=== PATIENT | female | born 1975 | race Caucasian/White ===

== ENCOUNTER 2023-01-31 13:17 | Outpatient (CLI) | payer OTHER, SELFPAY | END 2023-01-31 13:18 | disposition home or self-care (01) | PROVIDERS: PCP Family Medicine; Visit Provider Family Medicine | DX: I10 Essential (primary) hypertension (principal); E04.1 Nontoxic single thyroid nodule; K76.0 Fatty (change of) liver, not elsewhere classified; E66.9 Obesity, unspecified | CPT/HCPCS: 80053; 80061; 84443; 87086; 87186 ==

== ENCOUNTER 2024-01-10 10:58 | Outpatient (CLI) | payer OTHER, SELFPAY ==
--- NOTE | 2024-01-10 11:00 | US_ITS ---
Patient: PASCUAL PEREZ Facility:?[facility] Patient ID:?[id number] Site Patient ID:?[id number]. Site :?[id number] Study:?US-Thyroid -01/10/2024 12:16:38 PM Ordering Physician:hilda lucas Final Report: INDICATION: Follow-up thyroid nodules. COMPARISON: Ultrasound examination of thyroid gland 04/17/2017 and 04/06/2018. TECHNIQUE: Ultrasound examination of the thyroid gland. FINDINGS: The right lobe measures 5.4 x 1.6 x 2.2 cm and the left lobe measures 5 x 1.9 x 2.5 cm. The isthmus measured 0.4 cm in thickness. A 2 x 1.8 x 1.9 cm complex nodule lower pole left lobe thyroid gland; was measuring 1.9 x 1.2 x 1.6 cm in 2018; this was biopsied and apparently was a colloid nodule in the past. A 0.9 x 0.6 x 0.8 cm complex predominantly cystic nodule in the isthmus to the left of the midline; stable. Multiple TR 2 cystic nodules right lobe thyroid gland; stable. Impression : 1. A 2 x 1.8 x 1.9 cm complex nodule lower pole left lobe thyroid gland (TR 3); apparently biopsy-proven colloid nodule; follow-up in 1 year would suffice. 2. Multiple sub cm TR 2 cystic nodules right lobe; stable. Dictated by Linda Santana MD @ 01/11/2024 8:06:39 AM Signed by:?Linda Santana MD @01/11/2024 8:06:39 AM (Electronic Signature)
== END 2024-01-10 10:59 | disposition home or self-care (01) ==
PROVIDERS: PCP Family Medicine; Visit Provider Family Medicine
DX: E04.1 Nontoxic single thyroid nodule (principal)
CPT/HCPCS: 76536

== ENCOUNTER 2024-02-14 14:24 | Outpatient (CLI) | payer OTHER, SELFPAY ==
--- OUTSIDE RECORDS SUMMARY | 2024-02-14 14:27 | XMS_ITS | Clinical Summary ---
Author Name Unknown Organization [facility] Address [address] [place] [address] Care Team Providers Care Store Detective Name Role Phone Unavailable Primary Care Provider Unavailabl e Source Comments Patient records contain information from all sites at [facility]. For routine questions regarding patient records, call [phone] during business hours, M-F 8:00 AM - 5:00 PM Central Time. Record requests for emergency care only can be directed to [phone] at any time.[facility] Allergies No known active allergies Medications Medication Sig Dispensed Refills Start Date End Date Status carvedilol (COREG) 6.25 mg tablet Take 1 tablet (6.25 mg total) by mouth 2 (two) times a day with meals. 60 tablet 11 12/31/2018 Active chlorthalidone (HYGROTON) 25 mg tablet Take 25 mg by mouth daily. Active lisinopriL (PRINIVIL,ZESTRIL) 40 mg tablet Take 40 mg by mouth daily. Active albuterol 90 mcg/actuation inhalerIndications:W heezing Inhale 2 puffs every 6 (six) hours as needed for wheezing. 18 g 09/08/2023 09/07/2024 Active azithromycin (Zithromax Z-Sharad) 250 mg tabletIndications:Pn eumonia Take 2 tablets the first day, then 1 tablet daily for 4 days. 6 tablet 09/08/2023 Active Active Problems Problem Noted Date Diagnosed Date Disproportion Reconstructed Breast 10/19/2021 Difficult Intubation Personal History 04/25/2018 Breast Cancer NOS 04/25/2018 Absence Of Breast Acquired Bilateral 02/08/2018 Overview: Added automatically from request for surgery [id number] Cough Unspecified Type 10/18/2017 Nausea 10/18/2017 Malignant Neoplasm Of Unspec ified Site Of Laterality Unknown Female Breast 06/28/2017 Cancer Staging:Clinical:Stage IIB(T2, N1, M0) - Unsigned Immunizations Name Administration Dates Next Due Influenza Split 06/16/2017 Family History Medical History Relation Name Comments Pancreatic cancer Father Anatoliy Love at 63 Coronary artery disease Maternal Grandmother Karina Foste r Diabetes Maternal Grandmother Karina Foster Hypertension Maternal Grandmother Karina Foster Stroke Maternal Grandmother Karina Foster Transient ischemic attack Maternal Grandmother Karina Fos ter Diabetes Mother Vernon Huertas Hypertension Mother Vernon Huertas Transient ischemic attack Mother Vernon Huertas Breast cancer Paternal Grandmother Golden Love Relation Name Status Comments Father Anatoliy Love Maternal Grandmother Karina Foster Mother Vernon Huertas Paternal Grandmother Golden Love Social History Tobacco Use Types Packs/Day Years Used Date Smoking Tobacco: Never Smokeless Tobacco: Never Alcohol Use Standard Drinks/Week Comments Yes 2 (1 standard drink = 0.6 oz pur e alcohol) Nutrition Answer Date Recorded Nutrition: EVOO Fat Source Unknown 12/08 Nutrition: Servings of Fruits/Vegetables per Day Not on file 12/08/2020 Dental Answer Date Recorded Dental: Regular Dentist Unknown 12/08/19 21 Sex and Gender Information Value Date Recorded Sex Assigned at Female 09/08/2023 11:21 AM FIRE SPRINKLER SERVICE TECHNICIAN Gender Identity Female 09/11/2017 2:05 PM FIRE SPRINKLER SERVICE TECHNICIAN Sexual Orientation Straight 09/11/2017 2: 05 PM FIRE SPRINKLER SERVICE TECHNICIAN Last Filed Vital Signs Vital Sign Reading Time Taken Comments Blood Pressure 140/86 09/08/2023 12:37 PM FIRE SPRINKLER SERVICE TECHNICIAN Pulse 86 09/08/2023 12:33 PM FIRE SPRINKLER SERVICE TECHNICIAN Temperature 36.2 ??C (97.2 ??F) 09/08/2023 12:[address] Respiratory Rate 16 03/12/2020 6:35 PM CDT Oxygen Saturation 98% 09/08/2023 12:33 PM FIRE SPRINKLER SERVICE TECHNICIAN Inhaled Oxygen Concentration - - Weight 131 kg (289 lb 0.4 oz) 09/08/2023 12:33 P M FIRE SPRINKLER SERVICE TECHNICIAN Height 161.2 cm (5' 3.47) 12/31/2018 2:02 PM CD T Body Mass Index 50.45 12/31/2018 2:02 PM CDT Plan of Treatment Health Maintenance Due Date Last Done Comments CT Colonography 1974 Cologuard 1975 Colonoscopy 1975 Colorectal Cancer Screening 1974 FIT 1975 HIV Screening 1975 Hepatitis C Screening 1974 Lipid (Cholesterol) Screening 1974 COVID-19 Vaccine (#1) 1979 Pneumococcal vaccine (0-64 years) (1 of 2 - PCV) 1980 Hepatitis B Vaccines (1 of 3 - 19+ 3-dose series) 1993 Zoster Vaccines (1 of 2) 1993 Creatinine Level (Kidney Function Test) 03/12/2021 03/12/2020, 12/27/2018, 10/11/2017, Additional history exists Potassium Level 03/12/2021 03/12/2020, 04/15, 08/17/2017 Sodium Level 03/12/2021 03/12/2020, 04/15, 08/17/2017 Fasting Glucose for Diabetes Screening 03/12/2023 03/12/2020, 07/30/2018, 12/15/2017, Additional history exists Influenza Vaccine (#1) 2023 , 07/17/2019, 07/19/2018, Additional history exists Depression Screening (Annual PHQ-2) 10/16/2023 Office Visit for Blood Pressure Check / Re-check 12/09/2023 09/08/2023 DTaP,Tdap,and Td Vaccines (2 - Td or Tdap) 04/23/2025 04/23/2015 HPV Vaccines Aged Out No longer eligi ble based on patient's age to complete this topic Medical Devices Implanted Type Area Reuse Technician Device Identifier Shelf Expiration Date Model / Serial / Lot Clp Glascock Ti Spr Mcr 1.5 - [id number] Implanted:Qt y: 1 on 04/25/2018 by Randall Rodríguez M.D., Ph.D. at [facility] Hardware e.g. pins/screws /rods [employer]is [id number] / / Clp Hrzn Ti 6 Clp Sm Red - [id number] Implanted:Qt y: 1 on 04/25/2018 by Randall Rodríguez M.D., Ph.D. at [facility] Hardware e.g. pins/screws /rods Weck (Div of [employer]) 1201 / / Clp Hrzn Ti 6 Clp Sm Red - [id number] Implanted:Qt y: 1 on 04/25/2018 by Randall Rodríguez M.D., Ph.D. at [facility] Hardware e.g. pins/screws /rods Weck (Div of [employer]) 1201 / / Clp Hrzn Ti 6 Clp Sm Red - [id number] Implanted:Qt y: 1 on 04/25/2018 by Randall Rodríguez M.D., Ph.D. at [facility] Hardware e.g. pins/screws /rods Weck (Div of [employer]) 1201 / / Clp Hrzn Ti 6 Clp Sm Red - [id number] Implanted:Qt y: 1 on 04/25/2018 by Randall Rodríguez M.D., Ph.D. at [facility] Hardware e.g. pins/screws /rods Weck (Div of [employer]) 1201 / / Clp Hrzn Ti 6 Clp Sm Red - [id number] Implanted:Qt y: 1 on 04/25/2018 by Randall Rodríguez M.D., Ph.D. at [facility] Hardware e.g. pins/screws /rods Weck (Div of [employer]) 1201 / / Clp Hrzn Ti 6 Clp Sm Red - [id number] Implanted:Qt y: 1 on 04/25/2018 by Randall Rodríguez M.D., Ph.D. at [facility] Hardware e.g. pins/screws /rods Weck (Div of [employer]) 1201 / / Clp Glascock Ti Spr Mcr 1.5 - [id number] Implanted:Qt y: 1 on 04/25/2018 by Randall Rodríguez M.D., Ph.D. at [facility] Hardware e.g. pins/screws /rods [employer]is [id number] / / Clp Hrzn Ti 24 Clp Md Sunny - [id number] Implanted:Qt y: 1 on 04/25/2018 by Randall Rodríguez M.D., Ph.D. at [facility] Hardware e.g. pins/screws /rods [employer] [id number] / / Clp Hrzn Ti 6 Clp Sm Red - [id number] Implanted:Qt y: 1 on 04/25/2018 by Randall Rodríguez M.D., Ph.D. at [facility] Hardware e.g. pins/screws /rods Weck (Div of [employer]) [id number] 12/27/2022 1201 / / [id number] Clp Hrzn Ti 6 Clp Md Sunny - [id number] Implanted:Qt y: 1 on 04/25/2018 by Randall Rodríguez M.D., Ph.D. at [facility] Hardware e.g. pins/screws /rods [employer] [id number] 02/12/2023 [id number] / / [id number] Clp Hrzn Ti 6 Clp Md Sunny - [id number] Implanted:Qt y: 1 on 04/25/2018 by Randall Rodríguez M.D., Ph.D. at [facility] Hardware e.g. pins/screws /rods [employer] [id number] 02/12/2023 [id number] / / [id number] Clp Hrzn Ti 6 Clp Sm Red - [id number] Implanted:Qt y: 1 on 04/25/2018 by Randall Rodríguez M.D., Ph.D. at [facility] Hardware e.g. pins/screws /rods Weck (Div of [employer]) [id number] 01/13/2023 1201 / / [id number] Cplr Glascock Vasc Anstm 3 - [id number] Implanted:Qt y: 1 on 04/25/2018 by Randall Rodríguez M.D., Ph.D. at [facility] Hardware e.g. pins/screws /rods [employer]is [id number] / / Clp Glascock Ti Spr Mcr 1.5 - [id number] Implanted:Qt y: 1 on 04/25/2018 by Randall Rodríguez M.D., Ph.D. at [facility] Hardware e.g. pins/screws /rods Right: Breast [employer] [id number] / / Clp Glascock Ti Spr Mcr 1.5 - [id number] Implanted:Qt y: 1 on 04/25/2018 by Randall Rodríguez M.D., Ph.D. at [facility] Hardware e.g. pins/screws /rods Right: Breast [employer] [id number] / / Clp Hrzn Ti 6 Clp Sm Red - [id number] Implanted:Qt y: 1 on 04/25/2018 by Randall Rodríguez M.D., Ph.D. at [facility] Hardware e.g. pins/screws /rods Right: Breast Weck (Div of [employer]) [id number] 01/13/2023 1201 / / [id number] Clp Hrzn Ti 6 Clp Sm Red - [id number] Implanted:Qt y: 1 on 04/25/2018 by Randall Rodríguez M.D., Ph.D. at [facility] Hardware e.g. pins/screws /rods Right: Breast Weck (Div of [employer]) [id number] 01/13/2023 1201 / / [id number] Clp Hrzn Ti 6 Clp Sm Red - [id number] Implanted:Qt y: 1 on 04/25/2018 by Randall Rodríguez M.D., Ph.D. at [facility] Hardware e.g. pins/screws /rods Right: Breast Weck (Div of [employer]) [id number] 01/13/2023 1201 / / [id number] Cplr Glascock Vasc Anstm 3 - [id number] Implanted:Qt y: 1 on 04/25/2018 by Randall Rodríguez M.D., Ph.D. at [facility] Hardware e.g. pins/screws /rods [employer] 11/15/2022 [id number] / / [id number] Clp Glascock Ti Mcr - [id number] Implanted:Qt y: 1 on 04/25/2018 by Randall Rodríguez M.D., Ph.D. at [facility] Hardware e.g. pins/screws /rods [employer] [id number] / / Clp Glascock Ti Mcr - [id number] Implanted:Qt y: 1 on 04/25/2018 by Randall Rodríguez M.D., Ph.D. at [facility] Hardware e.g. pins/screws /rods [employer] [id number] / / Clp Glascock Ti Mcr - [id number] Implanted:Qt y: 1 on 04/25/2018 by Randall Rodríguez M.D., Ph.D. at [facility] Hardware e.g. pins/screws /rods [employer]is [id number] / / Clp Glascock Ti Mcr - [id number] Implanted:Qt y: 1 on 04/25/2018 by Randall Rodríguez M.D., Ph.D. at [facility] Hardware e.g. pins/screws /rods [employer] [id number] / / Clp Glascock Ti Mcr - [id number] Implanted:Qt y: 1 on 04/25/2018 by Randall Rodríguez M.D., Ph.D. at [facility] Hardware e.g. pins/screws /rods [employer] [id number] / / Clp Glascock Ti Mcr - [id number] Implanted:Qt y: 1 on 04/25/2018 by Randall Rodríguez M.D., Ph.D. at [facility] Hardware e.g. pins/screws /rods [employer] [id number] / / Clp Glascock Ti Spr Mcr 1.5 - [id number] Implanted:Qt y: 1 on 04/25/2018 by Randall Rodríguez M.D., Ph.D. at [facility] Hardware e.g. pins/screws /rods [employer]is [id number] / / Clp Apr Lgm Intnl Endo 5x13 - [id number] Implanted:Qt y: 1 on 09/14/2018 by Richie Orr M.D. at [facility] Hardware e.g. pins/screws /rods [employer] [id number] 05/15/2023 [id number] / / [id number] Explanted Type Area Reuse Technician Device Identifier Shelf Expiration Date Model / Serial / Lot Natrelle-Expand er Mod Tab 400cc - Leal [id number] Implanted:Qty: 1 on 11/14/2017 Explanted:Qty: 1 on 04/25/2018 at [facility] Tissue Marketing Assistant Retail Division Other/Legacy - See Implant Description [employer] Description:Device Manufactu rer - [employer] Body Location - Other. Left. Device Status Text - [id number]. Natrelle-Expand er Mod Tab 400cc - Leal [id number] Implanted:Qty: 1 on 11/14/2017 Explanted:Qty: 1 on 04/25/2018 at [facility] Tissue Marketing Assistant Retail Division Other/Legacy - See Implant Description [employer] Description:Device Manufactu rer - [employer] Body Location - Other. Right. Device Status Text - [id number]. Procedures Procedure Name Priority Date/Time Associated Diagnosis Comments BASIC METABOLIC PANEL, S/P STAT 03/12/2020 4:58 PM CDT from Last 3 Months or Most Recently Relevant to Health Maintenance Results * Basic Metabolic Panel (03/12/2020 4:58 PM CDT) Potassium, P 4.1 3.6 - 5.2 mmol/L 03/12/2020 5:39 PM CDT NPRG Sodium, P 140 135 - 145 mmol/L 03/12/2020 5:39 PM CDT NPRG Chloride, P 101 98 - 107 mmol/L 03/12/2020 5:39 PM CDT NPRG Bicarbonate, P 26 22 - 29 mmol/L 03/12/2020 5:39 PM CDT NPRG Anion Gap, P 13 7 - 15 03/12/2020 5:39 PM CDT NPRG BUN (Blood Urea Nitrogen), P 16 6 - 21 mg/dL 03/12/2020 5:39 PM CDT NPRG Creatinine 0.87 0.59 - 1.04 mg/dL 03/12/2020 5:39 PM CDT NPRG eGFR-Black/Afric an Congolese >90 >=60 mL/min/BSA 03/12/2020 5:39 PM CDT NPRG Comment: ----ADDITIONAL INFORMATION---- Estimated GFR calculated using the 2009 CKD_EPI creatinine equation. eGFR Non-Black/Mable n Congolese 81 >=60 mL/min/BSA 03/12/2020 5:39 PM CDT NPRG Comment: ----ADDITIONAL INFORMATION---- Estimated GFR calculated using the 2009 CKD_EPI creatinine equation. Calcium, Total, P 9.7 8.6 - 10.0 mg/dL 03/12/2020 5:39 PM CDT NPRG Glucose, P 129 70 - 140 mg/dL 03/12/2020 5:39 PM CDT NPRG Blood (Blood, Venous) 03/12/2020 4:58 PM CDT 03/12/2020 5:15 PM CDT Landen Huffman M.D. LAB BLOOD ADD-ON [facility] [address] [place] [address], [facility] NPRG [facility] [address] [place] [address] from Last 3 Months or Most Recently Relevant to Health Maintenance
--- OUTSIDE RECORDS SUMMARY | 2024-02-14 14:27 | XMS_ITS | Patient Health Record ---
Author Name Unknown Organization [facility] Address [address] [place] [address] Care Team Providers Care Director Of Psychology Name Role Phone Elda Holcombily Primary Care Provider [phone] Reason For Referral No Information Medications Medication SIG (Take, Route, Frequency, Duration) Notes Start Date End Date Status Chlorthalidone 25mg once daily Active Trospium Chloride ER 60 MG 1 capsule 1 hour before a meal on an empty stomach Orally Once a day for 30 day(s) 12/03/2020 Active Lisinopril 40mg daily Active Social History Tobacco Use: Social History Observation Description Date Details (start date - stop date) Never Smoker NA - NA Tobacco Use/Smoking Question Answer Notes Are you a nonsmoker Problems Problem Type SNOMED Code ICD Code Onset Dates Problem Status W/U Status Risk Notes Problem 843575132 Overactive bladder (N32.81) Active confirmed Problem Urge incontinence of urine (41170588) Urge incontinence of urine (N39.41) Active confirmed Problem SI - Stress incontinence (68991622) Stress incontinence of urine (N39.3) Active confirmed Plan Of Treatment No Information Insurance Providers Payer Name Payer Address Payer Phone Subscriber Number Group Number Insured Name Patient Relationship to Insured Coverage Start Date Coverage End Date [employer]) [address] [address] [place] [phone] [id number] Osman Spencrein Self - patient is the insured Medical (General) History Medical History History ICD Code Hypertension Breast Cancer Diverticulitis Non-alcohlic fatty liver Possible surgical hernia from past surge bobbi Thyroid nodule: found to be benign polyp Surgical History Surgery Date(Month/Year) Hysterectomy (TVH) 2016 Bilateral Mastectomy 10/2017 Breast reconstruction 04/2018 Completion of breast reconstruction and cholecystectomy 09/2018 Bilateral Carpal Tunnel 2005 Bladder sling 2010 2002 and 2014 Fine needle aspiration of th e thyroid due to a thyroid nodule: findings-thyroid polyp 2017
--- OUTSIDE RECORDS SUMMARY | 2024-02-14 14:27 | XMS_ITS | Referral Summary ---
Author Name Unknown Organization [facility] Address [address] [place] [address] Care Team Providers Care Enterprise Resource Planner Name Role Phone Unavailable Primary Care Provider Unavailabl e Source Comments Patient records contain information from all sites at [facility]. For routine questions regarding patient records, call [phone] during business hours, M-F 8:00 AM - 5:00 PM Central Time. 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 06/28/2017 Cancer Staging:Clinical:Stage IIB(T2, N1, M0) - Unsigned Immunizations Name Administration Dates Next Due Influenza Split 06/16/2017 Social History Tobacco Use Types Packs/Day Years [...] Sex Assigned at Female 09/08/2023 11:21 AM CARPET YARN WINDER OPERATOR Gender Identity Female 09/11/2017 2:05 PM CARPET YARN WINDER OPERATOR Sexual Orientation Straight 09/11/2017 2: 05 PM CARPET YARN WINDER OPERATOR Last Filed Vital Signs Vital Sign Reading Time Taken Comments Blood Pressure 140/86 09/08/2023 12:37 PM CARPET YARN WINDER OPERATOR Pulse 86 09/08/2023 12:33 PM CARPET YARN WINDER OPERATOR Temperature 36.2 ??C (97.2 ??F) 09/08/2023 12:[address] Respiratory Rate 16 03/12/2020 6:35 PM CDT Oxygen Saturation 98% 09/08/2023 12:33 PM CARPET YARN WINDER OPERATOR Inhaled Oxygen Concentration - - Weight 131 kg (289 lb 0.4 oz) 09/08/2023 12:33 P M CARPET YARN WINDER OPERATOR Height 161.2 cm (5' 3.47) 12/31/2018 2:02 PM CD T Body Mass Index 50.45 12/31/2018 2:02 PM CDT Plan of Treatment Not on file Medical Devices Implanted Type Area Railway Switchman Device Identifier Shelf Expiration Date Model / Serial / Lot Clp [place] Ti Spr Mcr 1.5 - [id number] Implanted:Qt y: 1 on 04/25/2018 by Randall Rodríguez M.D., Ph.D. at [facility] Hardware e.g. pins/screws /rods Synovis [id number] / / Clp Hrzn Ti 6 Clp Sm Red - [id number] Implanted:Qt y: 1 on 04/25/2018 by Randall Rodríguez M.D., Ph.D. at [facility] Hardware e.g. pins/screws /rods Weck (Div of [employer]) 1201 / / Clp Hrzn Ti 6 Clp Sm Red - [id number] Implanted:Qt y: 1 on 04/25/2018 by Randall Rodríguez M.D., Ph.D. at [facility] Hardware e.g. pins/screws /rods Weck (Div of [employer]) 1201 / / Clp Hrzn Ti 6 Clp Sm Red - [id number] Implanted:Qt y: 1 on 04/25/2018 by Randall Rodríguez M.D., Ph.D. at [facility] Hardware e.g. pins/screws /rods Weck (Div of [employer]) 1201 / / Clp Hrzn Ti 6 Clp Sm Red - [id number] Implanted:Qt y: 1 on 04/25/2018 by Randall Rodríguez M.D., Ph.D. at [facility] Hardware e.g. pins/screws /rods Weck (Div of [employer]) 1201 / / Clp Hrzn Ti 6 Clp Sm Red - [id number] Implanted:Qt y: 1 on 04/25/2018 by Randall Rodríguez M.D., Ph.D. at [facility] Hardware e.g. pins/screws /rods Weck (Div of [employer]) 1201 / / Clp Hrzn Ti 6 Clp Sm Red - [id number] Implanted:Qt y: 1 on 04/25/2018 by Randall Rodríguez M.D., Ph.D. at [facility] Hardware e.g. pins/screws /rods Weck (Div of [employer]) 1201 / / Clp [place] Ti Spr Mcr 1.5 - [id number] Implanted:Qt y: 1 on 04/25/2018 by Randall Rodríguez M.D., Ph.D. at [facility] Hardware e.g. pins/screws /rods Synovis [id number] / / Clp Hrzn Ti 24 Clp Md Sunny - [id number] Implanted:Qt y: 1 on 04/25/2018 by Randall Rodríguez M.D., Ph.D. at [facility] Hardware e.g. pins/screws /rods [employer] [id number] / / Clp Hrzn Ti 6 Clp Sm Red - [id number] Implanted:Qt y: 1 on 04/25/2018 by Randall Rodríguez M.D., Ph.D. at [facility] Hardware e.g. pins/screws /rods Weck (Div of [employer]) [id number] 12/27/2022 1201 / / [id number] Clp Hrzn Ti 6 Clp Md Sunny - [id number] Implanted:Qt y: 1 on 04/25/2018 by Randall Rodríguez M.D., Ph.D. at [facility] Hardware e.g. pins/screws /rods [employer] [id number] 02/12/2023 [id number] / / [id number] Clp Hrzn Ti 6 Clp Md Sunny - [id number] Implanted:Qt y: 1 on 04/25/2018 by Randall Rodríguez M.D., Ph.D. at [facility] Hardware e.g. pins/screws /rods [employer] [id number] 02/12/2023 [id number] / / [id number] Clp Hrzn Ti 6 Clp Sm Red - [id number] Implanted:Qt y: 1 on 04/25/2018 by Randall Rodríguez M.D., Ph.D. at [facility] Hardware e.g. pins/screws /rods Weck (Div of [employer]) [id number] 01/13/2023 1201 / / [id number] Cplr [place] Vasc Anstm 3 - [id number] Implanted:Qt y: 1 on 04/25/2018 by Randall Rodríguez M.D., Ph.D. at [facility] Hardware e.g. pins/screws /rods Synovis [id number] / / Clp [place] Ti Spr Mcr 1.5 - [id number] Implanted:Qt y: 1 on 04/25/2018 by Randall Rodríguez M.D., Ph.D. at [facility] Hardware e.g. pins/screws /rods Right: Breast [employer]is [id number] / / Clp [place] Ti Spr Mcr 1.5 - [id number] Implanted:Qt y: 1 on 04/25/2018 by Randall Rodríguez M.D., Ph.D. at [facility] Hardware e.g. pins/screws /rods Right: Breast [employer]is [id number] / / Clp Hrzn Ti 6 Clp Sm Red - [id number] Implanted:Qt y: 1 on 04/25/2018 by Randall Rodríguez M.D., Ph.D. at [facility] Hardware e.g. pins/screws /rods Right: Breast Weck (Div of [employer]) [id number] 01/13/2023 1201 / / [id number] Clp Hrzn Ti 6 Clp Sm Red - [id number] Implanted:Qt y: 1 on 04/25/2018 by Randall Rodríguez M.D., Ph.D. at [facility] Hardware e.g. pins/screws /rods Right: Breast Weck (Div of [employer]) [id number] 01/13/2023 1201 / / [id number] Clp Hrzn Ti 6 Clp Sm Red - [id number] Implanted:Qt y: 1 on 04/25/2018 by Randall Rodríguez M.D., Ph.D. at [facility] Hardware e.g. pins/screws /rods Right: Breast Weck (Div of [employer]) [id number] 01/13/2023 1201 / / [id number] Cplr [place] Vasc Anstm 3 - [id number] Implanted:Qt y: 1 on 04/25/2018 by Randall Rodríguez M.D., Ph.D. at [facility] Hardware e.g. pins/screws /rods [employer]is 11/15/2022 [id number] / / [id number] Clp [place] Ti Mcr - [id number] Implanted:Qt y: 1 on 04/25/2018 by Randall Rodríguez M.D., Ph.D. at [facility] Hardware e.g. pins/screws /rods Synovis [id number] / / Clp [place] Ti Mcr - [id number] Implanted:Qt y: 1 on 04/25/2018 by Randall Rodríguez M.D., Ph.D. at [facility] Hardware e.g. pins/screws /rods [employer]is [id number] / / Clp [place] Ti Mcr - [id number] Implanted:Qt y: 1 on 04/25/2018 by Randall Rodríguez M.D., Ph.D. at [facility] Hardware e.g. pins/screws /rods [employer]is [id number] / / Clp [place] Ti Mcr - [id number] Implanted:Qt y: 1 on 04/25/2018 by Randall Rodríguez M.D., Ph.D. at [facility] Hardware e.g. pins/screws /rods Synovis [id number] / / Clp [place] Ti Mcr - [id number] Implanted:Qt y: 1 on 04/25/2018 by Randall Rodríguez M.D., Ph.D. at [facility] Hardware e.g. pins/screws /rods Syn[employer]is [id number] / / Clp [place] Ti Mcr - [id number] Implanted:Qt y: 1 on 04/25/2018 by Randall Rodríguez M.D., Ph.D. at [facility] Hardware e.g. pins/screws /rods Syn[employer]is [id number] / / Clp [place] Ti Spr Mcr 1.5 - [id number] Implanted:Qt y: 1 on 04/25/2018 by Randall Rodríguez M.D., Ph.D. at [facility] Hardware e.g. pins/screws /rods Synovis [id number] / / Clp Apr Lgm Intnl Endo 5x13 - [id number] Implanted:Qt y: 1 on 09/14/2018 by Richie Orr M.D. at [facility] Hardware e.g. pins/screws /rods Ethicon [id number] 05/15/2023 [id number] / / [id number] Explanted Type Area Railway Switchman Device Identifier Shelf Expiration Date Model / Serial / Lot Natrelle-Expand er Mod Tab 400cc - Leal [id number] Implanted:Qty: 1 on 11/14/2017 Explanted:Qty: 1 on 04/25/2018 at [facility] Tissue Psychology Physician Other/Legacy - See Implant Description Allergan Medical Description:Device Manufactu rer - [employer] Body Location - Other. Left. Device Status Text - [id number]. Natrelle-Expand er Mod Tab 400cc - Leal [id number] Implanted:Qty: 1 on 11/14/2017 Explanted:Qty: 1 on 04/25/2018 at [facility] Tissue Psychology Physician Other/Legacy - See Implant Description [employer]ergan Medical Description:Device Manufactu rer - [employer]er[employer] Inc.. Body Location - Other. Right. Device Status Text - [id number]. Procedures Procedure Name Priority Date/Time Associated Diagnosis [...] 03/12/2020 5:39 PM CDT NPRG eGFR-Black/Afric an Mosotho >90 >=60 mL/min/BSA 03/12/2020 5:39 PM CDT NPRG Comment: ----ADDITIONAL INFORMATION---- Estimated GFR calculated using the 2009 CKD_EPI creatinine equation. eGFR Non-Black/Mable n Mosotho 81 >=60 mL/min/BSA 03/12/2020 5:39 PM CDT NPRG Comment: ----ADDITIONAL INFORMATION---- Estimated GFR calculated using the 2009 CKD_EPI creatinine equation. Calcium, Total, P 9.7 8.6 - 10.0 mg/dL 03/12/2020 5:39 PM CDT NPRG Glucose, P 129 70 - 140 mg/dL 03/12/2020 5:39 PM CDT NPRG Blood (Blood, Venous) 03/12/2020 4:58 PM CDT 03/12/2020 5:15 PM CDT Landen Huffman M.D. LAB BLOOD ADD-ON [facility] [address] [place] [address], [facility] NPRG [facility] [address] [place] [address] from Last 3 Months or Most Recently Relevant to Health Maintenance
--- OUTSIDE RECORDS SUMMARY | 2024-02-14 14:27 | XMS_ITS ---
Author Name Unknown Organization [facility] Address [address] [place] [address] Care Team Providers Care Corporate Specialist Name Role Phone Unavailable Unavailable Unavailable Surgery Details Not on file Complications Check Surgery Details section. Procedure Estimated Blood Loss Check Surgery Details section. Procedure Findings Check Surgery Details section. Procedure Specimens Taken Check Surgery Details section.
--- OUTSIDE RECORDS SUMMARY | 2024-02-14 14:27 | XMS_ITS ---
Author Name Unknown Organization [facility] Address [address] [place] [address] Care Team Providers Care Assistant Produce Manager Name Role Phone Unavailable Primary Care Provider Unavailabl e Active Problems Problem Noted Date Diagnosed Date Disproportion Reconstructed Breast 10/19/2021 Difficult Intubation Personal History 04/25/2018 Breast Cancer NOS 04/25/2018 Absence Of Breast Acquired Bilateral 02/08/2018 Overview: Added automatically from request for surgery [id number] Cough Unspecified Type 10/18/2017 Nausea 10/18/2017 Malignant Neoplasm Of Unspec ified Site Of 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 Past Plans Flushes/Hydration Plan Name Start Date Discontinue Date Treatment Medications Discontinue Reason Plan Provider VASCULAR ACCESS PATENCY - IMPLANTED VASCULAR ACCESS DEVICE (IVAD) VENOUS NON-VALVED 08/24/2017 04/16/2020 No medications scheduled. Therapy Complete Lucy Ca M.D. Hematology / Oncology Treatment 1 Plan Name Start Date Discontinue Date Treatment Medications Discontinue Reason Plan Provider Cycles AC ( DOXOrubicin / Cyclophosphamid e ) every 14 days 201607/05/2023 cycloPHOSphamide (CYTOXAN) IVPB in 250 mL (1 g vial) (CYTOXAN)DOXOrubi oxana (ADRIAMYCIN) Discontinuation of Plans with No Action >1 year-System Maintenance Lucy Ca M.D. 4 of 4 cycles started PACLitaxel Weekly every 21 days 017 08/19/2017 PACLitaxel (TAXOL) Not Tolerated Lucy Ca M.D. 2 of 4 cycles completed Radiation Treatments * No radiation treatments are documented for this patient in [facility]. Treatments may have been administered in another system. Lifetime Dose Tracking * Chemical Lifetime Dose Automatic Entry Manual Entr y doxorubicin 211.047 mg/m2 (448 mg) 211.047 mg/m2 (448 mg) 0 mg/m2 (0 mg) Pediatric total anthracycline 211.047 mg/m2 (448 mg) 211.047 mg/m2 (448 mg) 0 mg/m2 (0 mg) Adult total anthracycline 211.047 mg/m2 (448 mg) 211.047 mg/m2 (448 mg) 0 mg/m2 (0 mg)
--- OUTSIDE RECORDS SUMMARY | 2024-02-14 14:27 | XMS_ITS | Clinical Summary ---
Author Name Unknown Organization [facility] Address [place], [place] [address] Care Team Providers Care Gas Station Manager Name Role Phone [facility], [facility] Primary Care Provide r Allergies No known active allergies Medications No known medications Active Problems No known active problems Family History Medical History Relation Name Comments Diabetes Maternal Grandmother Heart Disease Maternal Grandmother Stroke Maternal Grandmother Diabetes Mother Hypertension Mother Cancer-breast Paternal Grandmother Relation Name Status Comments Maternal Grandmother Mother Paternal Grandmother Social History Tobacco Use Types Packs/Day Years Used Date Smoking Tobacco: Never Smokeless Tobacco: Never Alcohol Use Standard Drinks/Week Comments Yes 0 (1 standard drink = 0.6 oz pur e alcohol) occas Sex and Gender Information Value Date Recorded Sex Assigned at Not on file Gender Identity Not on file Sexual Orientation Not on file Obstetrics History Last Filed Vital Signs Vital Sign Reading Time Taken Comments Blood Pressure 106/68 08/20/2014 1:06 PM CENTER CUSTOMER SERVICE ASSOCIATE Pulse 88 08/20/2014 1:06 PM CENTER CUSTOMER SERVICE ASSOCIATE Temperature - - Respiratory Rate - - Oxygen Saturation - - Inhaled Oxygen Concentration - - Weight 84.2 kg (185 lb 9.6 oz) 08/20/2014 1:06 P M CENTER CUSTOMER SERVICE ASSOCIATE Height 161.3 cm (5' 3.5) 08/20/2014 1:06 PM CENTER CUSTOMER SERVICE ASSOCIATE Body Mass Index 32.36 08/20/2014 1:06 PM CENTER CUSTOMER SERVICE ASSOCIATE Plan of Treatment Upcoming Encounters Date Type Department Care Team (Late st Contact Info) Description 02/28/2024 10:15 AM CDT Office Visit [facility] [address] [place] [address] Dejon Vaughn DPM [address] [place] [address] Health Maintenance Due Date Last Done Comments Tdap 1985 Depression screening for age 12+ 1986 HIV for age 15-65 1989 BMI (ht and wt on same day) for age 18+ 1992 Hepatitis C screening for ag e 18-79 1992 Tetanus booster 1994 Pap test for age 21-65 07/22/2018 07/22/2015 Colonoscopy through age 75 2019 Lipids for age 45-75 2019 Mammogram for age 45-75 2019 COVID-19 vaccine series (2022- season) 2023 Influenza for age 9-49 06/16/2024 Pneumococcal series for age 6-64 Aged Out No longer eligible based on patient's age to complete this topic Procedures Procedure Name Priority Date/Time Associated Diagnosis Comments HEALTH SCIENCE SPECIALIST THIN PREP PAP SCREEN IMAGED Routine 07/22/2015 10:30 AM CDT from Last 3 Months or Most Recently Relevant to Health Maintenance Results * HEALTH SCIENCE SPECIALIST THIN PREP PAP SCREEN IMAGED (07/22/2015 10:30 AM CDT) HEALTH SCIENCE SPECIALIST CYTOLOGY See Anatomic Pathology case 07/27/2015 7:00 PM [facility]T [facility] Specimen (specimen) (Cervical/Vagina l) Client Collect / Unknown 07/22/2015 10:30 AM CDT 07/22/2015 6:35 PM CDT Yuliana Pulido MD PATHOLOGY/C YTOLOGY [facility] [address] [place] [address], [place] from Last 3 Months or Most Recently Relevant to Health Maintenance Care Teams Gas Station Manager Relationship Specialty Start Date End Date [facility], [facility] [address] [place] [address] PCP - General 12/09/15
--- NOTE | 2024-02-28 13:20 | W.PM.SLEEP ---
Sleep Study Details Details Interpreting Provider: Guy Date of Sleep Study: 02/14/24 Sleep Study Details: STUDY TYPE:? Home unattended ? BMI:? Not recorded ORDERING PROVIDER:? Guy INDICATION:? Concerns about sleep apnea ? SLEEP SUMMARY:? Monitor time 244 minutes RESPIRATORY SUMMARY:? AHI 79.2. No positional data was available Low oxygen 70 13.9% of study oxygen less than 90% Snoring 78.3% PERIODIC LIMB MOVEMENTS OF SLEEP:? Not recorded CARDIAC:? Range 41-255, mean 69.9 (this may be artifactual) IMPRESSION:? Severe obstructive sleep apnea Tachycardia was noted but this is being investigated by the sleep lab as being possibly artifactual. RECOMMENDATION: AutoSet CPAP pressure 4-18. Patient may end up progressing to bilevel based on severity.
== END 2024-02-14 14:25 | disposition home or self-care (01) ==
PROVIDERS: PCP Family Medicine; Visit Provider Otolaryngology
DX: G47.33 Obstructive sleep apnea (adult) (pediatric) (principal)
CPT/HCPCS: 95806

== ENCOUNTER 2024-05-29 11:36 | Emergency (ER) | payer OTHER, SELFPAY ==
[2024-05-29] VITALS (7 sets, daily range): BP systolic 162–212; BP diastolic 77–107; PULSE 82–93; RESP 18; TEMP 36.6; O2SAT 94–96; BMI 52.0
--- NOTE | 2024-05-29 11:45 | ED.GENADULT ---
HPI - General Adult General Chief complaint: Shortness of Breath/Dyspnea Stated complaint: Shortness of breath, sweating Time Seen by Provider: 05/29/24 11:39 History of Present Illness HPI narrative: was seen by Dr. Lorenzo today to review cpap results and mentioned to that she has noted exertion when walking over the past month. also has palpitations sometimes at night. 48-year-old woman presenting to the emergency department with concern of exertional dyspnea. This has been going on over the last month or so. Walks very regularly. At rest does not have shortness of breath. Has had new CPAP use over the last month. Was at follow-up visit for this in clinic and describing the symptoms was directed to the emergency department. Concerns expressed of potential cardiac problem. Does have some lower extremity edema the. Has been steadily gaining weight for some time. CPAP has certainly improved her sleep. No cough or cold symptoms. No fevers. Last labs done about a year ago. She does note a couple episodes where her heart was beating rapidly although was never measured for pulse just felt it pounding at night. She has also been experiencing some nocturnal diaphoresis. She notes that had a murmur when she was a child. Family history with grandmother from [place] at age 63 she mentions otherwise mother without cardiac disease. Unsure about father's health. Related Data Previous Rx's ?Medication ?Instructions ?Recorded furosemide 20 mg tablet 20 mg PO QAM #30 tabs 04/19/22 chlorthalidone 50 mg tablet 50 mg PO QDAY #90 tabs 01/31/23 lisinopril 40 mg tablet 40 mg PO QDAY #90 tabs 03/14/23 Allergies Allergy/AdvReac Type Severity Reaction Status Date / Time No Known Drug Allergies Allergy Verified 05/29/24 11:08 Review of Systems Status of ROS: Reports: 6 or more systems reviewed and unremarkable except as noted in History and below [facility] Surgical History History of carpal tunnel surgery of right wrist (~2003) ?Z98.890 - Other specified postprocedural states (ICD-10) Trigger finger, left middle finger (12/16/20) ?M65.332 - Trigger finger, left middle finger (ICD-10) Status post tubal ligation ?Z98.51 - Tubal ligation status (ICD-10) Status post hysterectomy ?Z90.710 - Acquired absence of both cervix and uterus (ICD-10) Status post cholecystectomy ?Z90.49 - Acquired absence of other specified parts of digestive tract (ICD-10) Status post bilateral mastectomy ?Z90.13 - Acquired absence of bilateral breasts and nipples (ICD-10) History of laser assisted in situ keratomileusis ?Z98.890 - Other specified postprocedural states (ICD-10) Status post delivery ?Z98.891 - History of uterine scar from previous surgery (ICD-10) History of carpal tunnel surgery of left wrist (12/16/20) ?Z98.890 - Other specified postprocedural states (ICD-10) Family History Other Diabetes Social History Smoking Status: Never smoker Exam Narrative: Exam Narrative: Very pleasant. NAD though tearful as she is quite worried at this point. Breathing easily otherwise. Lungs are clear. Heart is in mildly elevated rate and regular rhythm without murmur rub or gallop. Abdomen is notably overweight with diastasis recti. Extremities with mild dependent edema pretibial. Const: Vital Signs, click to edit/add: Vital Signs - 24 hr 05/29/24 11:38 Temperature 97.9 F Pulse Rate [Right Pulse Oximeter] 93 Respiratory Rate 18 Blood Pressure [Ri ght Upper Arm] 212/99 H Pulse Oximetry 94 Oxygen Delivery Me thod Room Air Documenting provider has reviewed patient's vital signs: yes Course Vital Signs Vital signs: Initial Vital Signs Temperature 97.9 F 05/29/24 11:38 Temperature Source Temporal Artery Scan 05/29/24 11:38 Pulse Rate 93 05/29/24 11:38 Respiratory Rate 18 05/29/24 11:38 Blood Pressure 212/99 H 05/29/24 11:38 Blood Pressure Mean 136 H 05/29/24 11:38 Blood Pressure Position Sitting 05/29/24 11:38 Pulse Oximetry 94 05/29/24 11:38 Oxygen Delivery Method Room Air 05/29/24 11:38 Vital Signs Temperature 97.9 F 05/29/24 11:38 Pulse Rate 93 05/29/24 11:38 Respiratory Rate 18 05/29/24 11:38 Blood Pressure 212/99 H 05/29/24 11:38 Pulse Oximetry 94 05/29/24 11:38 Oxygen Delivery Method Room Air 05/29/24 11:38 Temperature 97.9 F 05/29/24 11:38 Pulse Rate 82 05/29/24 12:45 Respiratory Rate 18 05/29/24 11:38 Blood Pressure 162/107 H 05/29/24 12:32 Pulse Oximetry 94 05/29/24 12:45 Oxygen Delivery Method Room Air 05/29/24 11:38 Medical Decision Making MDM Narrative Medical decision making narrative: Symptoms this certainly could represent exertional angina. She has also been gaining weight and this could be related. Perhaps had COVID or other illness and is having trouble recovering. Appears to be having some palpitations at times at night. I am unsure what to make of this at this point. Will evaluate otherwise for heart failure and recent cardiac injury. Differential includes pneumonia, anemia. Chest x-ray and blood work pending. Initial EKG reviewed by me shows normal sinus rhythm. Rate of 93 Slightly long QT at 396; 492 corrected. Otherwise I do not appreciate any ischemic changes or hint of dysrhythmia. Blood pressure on arrival is notably elevated to 212/99. Chest x-ray reviewed by me looks to have some cardiomegaly mild. No infiltrate. Labs are otherwise unremarkable including normal repeat troponin. Blood pressure prior to departure was improved though still elevated. No further events over period of time in the emergency department. Medical Records Medical records reviewed: Yes I reviewed the patient's medical records Lab Data Lab results reviewed: Yes I reviewed the patient's lab results Labs: Lab Results 05/29/24 05/29/24 Range/Units 12:14 12:26 WBC 6.28 (4.50-11.00) K/uL RBC 4.59 (4.00-5.20) m/uL Hgb 13.9 (12.0-16.0) gm/dL Hct 41.6 (33.0-51.0) % MCV 91 (80-100) fL MCH 30 (26-34) pg MCHC 33 (32-36) gm/dL RDW Coeff of Ahmet 12.0 (11.5-15.5) % Plt Count 233 (140-440) K/uL Neut % (Auto) 55.0 (42.0-72.0) % Lymph % (Auto) 35.7 (20-44) % Mcpherson % (Auto) 5.9 (0.0-11.0) % Eos % (Auto) 2.1 (0.0-7.0) % Baso % (Auto) 0.8 (0.0-3.0) % Neut # (Auto) 3.46 (1.7-7.0) K/uL Lymph # (Auto) 2.24 (0.90-2.90) K/uL Mcpherson # (Auto) 0.40 (0.00-0.90) K/UL Eos # (Auto) 0.13 (0.00-0.50) K/uL Baso # (Auto) 0.05 (0.00-0.30) K/uL Abs Immat Gran (auto) 0.03 (0.00-0.30) K/uL Imm/Tot Granulo (auto) 0.5 % D-Dimer Quant (PE/DVT) 0.42 (0.00-0.50) ug/ml Sodium 140 (135-149) mmol/L Potassium 4.1 (3.6-5.1) mmol/L Chloride 104 (96-114) mmol/L Carbon Dioxide 27 (20-32) mmol/L Anion Gap 9 (7-15) mEq/L BUN 12 (5-24) mg/dL Creatinine 0.7 (0.5-1.5) mg/dL Estimated Creat Clear 83.95 Estimated GFR 106 ml/min Glucose 112 (60-115) mg/dL Calcium 9.8 (8.4-10.6) mg/dL Magnesium 1.7 (1.5-2.6) mg/dL C-Reactive Protein 1.4 H (0.5-1.0) mg/dL NT-Pro-B Natriuret Pep 860 pg/mL TSH 2.800 (0.270-4.20) uIU/mL SARS-CoV-2 (PCR) Negative SARS-CoV-2 (Negative) Influenza Type A (PCR) Negative PCR FLU A (Negative) Influenza Type B (PCR) Negative PCR FLU B (Negative) Discharge Plan Discharge Clinical Impression: Exertional dyspnea, High blood pressure Patient Disposition: Home, Self-Care Condition: Stable Additional Instructions: While your symptoms are concerning, your workup here today is generally reassuring. We have scheduled you as below for a stress test. I anticipate you seeing Dr. Marshall after this to discuss results and the symptoms you have been having, control of blood pressure. Return otherwise for marked increase in persistent shortness of breath or chest pain, associated lightheadedness, nausea. Stress Treadmill Echo is scheduled for 05/30 with a 1:45pm arrival time. Please enter through the ER and check in at the front maker lockstitch. If you have any questions or need to reschedule, please call [phone]. Please make a follow up appointment with your primary care provider to receive the results of your stress test. Prescriptions: No Action furosemide 20 mg tablet 20 mg PO QAM Qty: 30 5RF chlorthalidone 50 mg tablet 50 mg PO QDAY Qty: 90 3RF lisinopril 40 mg tablet 40 mg PO QDAY Qty: 90 3RF Follow Up/Referrals: Jeanmarie Moss MD [Primary Care Provider] - Stand Alone Forms: [employer] Info Instructions
--- NOTE | 2024-05-29 12:14 | CRLHL7_ITS ---
For Patients: As a result of the Century Cures Act, medical imaging exams and procedure reports are released immediately into your electronic medical record. You may view this report before your referring provider. If you have questions, please contact your health care provider. INDICATION: Dyspnea on exertion. COMPARISON: 03/10/2023 TECHNIQUE: 1 view. FINDINGS: The patient is slightly rotated rightward. Medical Devices: None. Lung Volumes: Adequate inspiration. No significant atelectasis. Lungs: Clear lungs. Pleura and Pleural spaces: No significant pleural effusion. No pneumothorax. Mediastinum: AP technique exaggerates with transverse dimension of the cardiac silhouette. Borderline/mild cardiomegaly is unchanged. Bony Thorax and Soft Tissues: No significant incidental findings. IMPRESSION: No imaging findings pertinent to the indication for the exam or significant unrelated findings. Incidental findings described in the body of the report. Dictated by Jakub Crisostomo MD @ 05/29/2024 12:50:31 PM (Electronically Signed)
[2024-05-29 12:38] LABS: Basophils Absolute Auto 0.05 K/uL (0.00-0.30); Basophils Percent Auto 0.8 % (0.0-3.0); Eosinophils Absolute Auto 0.13 K/uL (0.00-0.50); Eosinophils Percent Auto 2.1 % (0.0-7.0); Hematocrit 41.6 % (33.0-51.0); Hemoglobin* 13.9 gm/dL (12.0-16.0); Immature Granulocytes Abs Auto 0.03 K/uL (0.00-0.30); Immature Granulocytes Pct Auto 0.5 %; Lymphocytes Absolute Auto 2.24 K/uL (0.90-2.90); Lymphocytes Percent Auto 35.7 % (20-44); Mean Corpuscular HGB Conc 33 gm/dL (32-36); Mean Corpuscular Hemoglobin 30 pg (26-34); Mean Corpuscular Volume 91 fL (80-100); Monocytes Percent Auto 5.9 % (0.0-11.0); Neutrophils Absolute Auto 3.46 K/uL (1.7-7.0); Platelet Count* 233 K/uL (140-440); Red Blood Count 4.59 m/uL (4.00-5.20); White Blood Count* 6.28 K/uL (4.50-11.00)
[2024-05-29 12:39] LABS: Slide Review Reflex No
[2024-05-29 12:54] LABS: Chloride* 104 mmol/L (96-114); Potassium* 4.1 mmol/L (3.6-5.1); Sodium* 140 mmol/L (135-149)
--- OUTSIDE RECORDS SUMMARY | 2024-05-29 12:55 | XMS_ITS | Clinical Summary ---
Author Organization [facility] Address [place], [place] [address] Care Team Providers Care Biodiesel Production Associate Name Role Phone [facility] [employer] [facility] Primary Care Provide r Allergies No known [...] Comments Blood Pressure 106/68 08/20/2014 1:06 PM ASSOCIATE TRAINER Pulse 88 08/20/2014 1:06 PM ASSOCIATE TRAINER Temperature - - Respiratory Rate - - Oxygen Saturation - - Inhaled Oxygen Concentration - - Weight 84.2 kg (185 lb 9.6 oz) 08/20/2014 1:06 P M ASSOCIATE TRAINER Height 161.3 cm (5' 3.5) 08/20/2014 1:06 PM ASSOCIATE TRAINER Body Mass Index 32.36 08/20/2014 1:06 PM ASSOCIATE TRAINER Plan of Treatment Health Maintenance Due Date [...] for age 45-75 2019 COVID-19 vaccine series ( - 2022- season) 2023 Influenza for age 9-49 06/16/2024 Pneumococcal series for age 6-64 Aged Out No longer eligible based on patient's age to complete this topic Procedures Procedure Name Priority Date/Time Associated Diagnosis Comments HEAD OPERATOR THIN PREP PAP SCREEN IMAGED Routine 07/22/2015 10:30 AM CDT from Last 3 Months or Most Recently Relevant to Health Maintenance Results * HEAD OPERATOR THIN PREP PAP SCREEN IMAGED (07/22/2015 10:30 AM CDT) HEAD OPERATOR CYTOLOGY See Anatomic Pathology case 07/27/2015 7:00 PM CDT [facility] Specimen (specimen) (Cervical/Vagina l) Client Collect / Unknown 07/22/2015 10:30 AM CDT 07/22/2015 6:35 PM CDT Yuliana Pulido MD PATHOLOGY/C YTOLOGY [facility] [address] [place] [address], [place] from Last 3 Months or Most Recently Relevant to Health Maintenance Care Teams Biodiesel Production Associate Relationship Specialty Start Date End Date Clinic, [facility] [address] [place] [id number] PCP - General 12/09/15
--- OUTSIDE RECORDS SUMMARY | 2024-05-29 12:56 | XMS_ITS ---
Author Organization [facility] Address [address] [place] [address] Care Team Providers Care Concrete Pump Operator Name Role Phone Unavailable Primary Care Provider Unavailabl e Active Problems Problem Noted Date Diagnosed Date Disproportion Reconstructed Breast 10/19/2021 Difficult Intubation Personal History 04/25/2018 Breast Cancer NOS 04/25/2018 Absence Of Breast Acquired Bilateral 02/08/2018 Overview (02/08/2018): Added automatically from request for surgery [id number] Cough Unspecified Type 10/18/2017 Nausea 10/18/2017 Malignant [...] e ) every 14 days 201607/05/2023 cycloPHOSphamide (Cytoxan) IVPB in 250 mL (1 g vial) (Cytoxan)DOXOrubi oxana (Adriamycin) Discontinuation of Plans with No Action >1 year-System Maintenance Lucy Ca M.D. 4 of 4 cycles started PACLitaxel Weekly every 21 days 017 08/19/2017 PACLitaxel (TaxoL) Not Tolerated Lucy Ca M.D. 2 of 4 cycles completed Radiation Treatments * No radiation treatments are documented for this patient in [facility]. Treatments may have been administered in another [...]
--- OUTSIDE RECORDS SUMMARY | 2024-05-29 12:56 | XMS_ITS | Referral Summary ---
Author Organization [facility] Address [address] [place] [address] Care Team Providers Care Jigsawyer Name Role Phone Unavailable Primary Care Provider Unavailabl e Source Comments Patient records contain information from all sites at [facility]. For routine questions regarding patient records, call [phone] during business hours, M-F 8:00 AM - 5:00 PM Central Time. Record requests for emergency care only can be directed to [phone] at any time.[facility] Allergies No known active allergies Medications [...] (02/08/2018): Added automatically from request for surgery [id number] Cough Unspecified Type 10/18/2017 Nausea 10/18/2017 Malignant [...] Sex Assigned at Female 09/08/2023 11:21 AM CAP INSPECTOR Gender Identity Female 09/11/2017 2:05 PM CAP INSPECTOR Sexual Orientation Straight 09/11/2017 2: 05 PM CAP INSPECTOR Last Filed Vital Signs Vital Sign Reading Time Taken Comments Blood Pressure 140/86 09/08/2023 12:37 PM CAP INSPECTOR Pulse 86 09/08/2023 12:33 PM CAP INSPECTOR Temperature 36.2 ??C (97.2 ??F) 09/08/2023 12:[address] Respiratory Rate 16 03/12/2020 6:35 PM CDT Oxygen Saturation 98% 09/08/2023 12:33 PM CAP INSPECTOR Inhaled Oxygen Concentration - - Weight 131 kg (289 lb 0.4 oz) 09/08/2023 12:33 P M CAP INSPECTOR Height 161.2 cm (5' 3.47) 12/31/2018 2:02 PM CD T Body Mass Index 50.45 12/31/2018 2:02 PM CDT Plan of Treatment Not on file Medical Devices Implanted Type Area Communication Technician Device Identifier Shelf Expiration Date Model / Serial / Lot Clp Mckittrick Ti Spr Mcr 1.5 - [id number] Implanted:Qt y: 1 on 04/25/2018 by Randall Rodríguez M.D., Ph.D. at [facility] Hardware e.g. pins/screws /rods Synovis [id number] / / Clp Hrzn Ti 6 Clp Sm Red - [id number] Implanted:Qt y: 1 on 04/25/2018 by Randall Rodríguez M.D., Ph.D. at [facility] Hardware e.g. pins/screws /rods Weck (Div of [employer]) 1201 / / Clp Hrzn Ti 6 Clp Sm Red - [id number] Implanted:Qt y: 1 on 04/25/2018 by Randall Rodríguez M.D., Ph.D. at [facility] Hardware e.g. pins/screws /rods Weck (Div of [employer]) 1201 / / Clp Hrzn Ti 6 Clp Sm Red - [id number] Implanted:Qt y: 1 on 04/25/2018 by Randall Rodríguez M.D., Ph.D. at [facility] Hardware e.g. pins/screws /rods Weck (Div of [employer]) 1201 / / Clp Hrzn Ti 6 Clp Sm Red - [id number] Implanted:Qt y: 1 on 04/25/2018 by Randall Rodríguez M.D., Ph.D. at [facility] Hardware e.g. pins/screws /rods Weck (Div of [employer]) 1201 / / Clp Hrzn Ti 6 Clp Sm Red - [id number] Implanted:Qt y: 1 on 04/25/2018 by Randall Rodríguez M.D., Ph.D. at [facility] Hardware e.g. pins/screws /rods Weck (Div of [employer]) 1201 / / Clp Hrzn Ti 6 Clp Sm Red - [id number] Implanted:Qt y: 1 on 04/25/2018 by Randall Rodríguez M.D., Ph.D. at [facility] Hardware e.g. pins/screws /rods Weck (Div of [employer]) 1201 / / Clp Mckittrick Ti Spr Mcr 1.5 - [id number] Implanted:Qt y: 1 on 04/25/2018 by Randall Rodríguez M.D., Ph.D. at [facility] Hardware e.g. pins/screws /rods Synovis [id number] / / Clp Hrzn Ti 24 Clp Md Sunny - [id number] Implanted:Qt y: 1 on 04/25/2018 by Randall Rodríguez M.D., Ph.D. at [facility] Hardware e.g. pins/screws /rods [employer] [id number] / / Clp Hrzn Ti 6 Clp Sm Red - [id number] Implanted:Qt y: 1 on 04/25/2018 by Randall Rodríguez M.D., Ph.D. at [facility] Hardware e.g. pins/screws /rods Weck (Div of [employer]) [id number] 12/27/2022 1201 / / [id number] Clp Hrzn Ti 6 Clp Md Sunny - [id number] Implanted:Qt y: 1 on 04/25/2018 by Randall Rodríguez M.D., Ph.D. at [facility] Hardware e.g. pins/screws /rods [employer] [id number] 02/12/2023 [id number] / / [id number] Clp Hrzn Ti 6 Clp Md Sunny - [id number] Implanted:Qt y: 1 on 04/25/2018 by Randall Rodríguez M.D., Ph.D. at [facility] Hardware e.g. pins/screws /rods [employer] [id number] 02/12/2023 [id number] / / [id number] Clp Hrzn Ti 6 Clp Sm Red - [id number] Implanted:Qt y: 1 on 04/25/2018 by Randall Rodríguez M.D., Ph.D. at [facility] Hardware e.g. pins/screws /rods Weck (Div of [employer]) [id number] 01/13/2023 1201 / / [id number] Cplr Mckittrick Vasc Anstm 3 - [id number] Implanted:Qt y: 1 on 04/25/2018 by Randall Rodríguez M.D., Ph.D. at [facility] Hardware e.g. pins/screws /rods Synovis [id number] / / Clp Mckittrick Ti Spr Mcr 1.5 - [id number] Implanted:Qt y: 1 on 04/25/2018 by Randall Rodríguez M.D., Ph.D. at [facility] Hardware e.g. pins/screws /rods Right: Breast [employer]is [id number] / / Clp Mckittrick Ti Spr Mcr 1.5 - [id number] Implanted:Qt y: 1 on 04/25/2018 by Randall Rodríguez M.D., Ph.D. at [facility] Hardware e.g. pins/screws /rods Right: Breast [employer] [id number] / / Clp Hrzn Ti 6 Clp Sm Red - [id number] Implanted:Qt y: 1 on 04/25/2018 by Randall Rodríguez M.D., Ph.D. at [facility] Hardware e.g. pins/screws /rods Right: Breast Weck (Div of [employer]) [id number] 01/13/2023 1201 / / [id number] Clp Hrzn Ti 6 Clp Sm Red - [id number] Implanted:Qt y: 1 on 04/25/2018 by Randall Rodríguez M.D., Ph.D. at [facility] Hardware e.g. pins/screws /rods Right: Breast Weck (Div of [employer]) [id number] 01/13/2023 1201 / / [id number] Clp Hrzn Ti 6 Clp Sm Red - [id number] Implanted:Qt y: 1 on 04/25/2018 by Randall Rodríguez M.D., Ph.D. at [facility] Hardware e.g. pins/screws /rods Right: Breast Weck (Div of [employer]) [id number] 01/13/2023 1201 / / [id number] Cplr Mckittrick Vasc Anstm 3 - [id number] Implanted:Qt y: 1 on 04/25/2018 by Randall Rodríguez M.D., Ph.D. at [facility] Hardware e.g. pins/screws /rods [employer] 11/15/2022 [id number] / / [id number] Clp Mckittrick Ti Mcr - [id number] Implanted:Qt y: 1 on 04/25/2018 by Randall Rodríguez M.D., Ph.D. at [facility] Hardware e.g. pins/screws /rods Syn[employer]is [id number] / / Clp Mckittrick Ti Mcr - [id number] Implanted:Qt y: 1 on 04/25/2018 by Randall Rodríguez M.D., Ph.D. at [facility] Hardware e.g. pins/screws /rods [employer]is [id number] / / Clp Mckittrick Ti Mcr - [id number] Implanted:Qt y: 1 on 04/25/2018 by Randall Rodríguez M.D., Ph.D. at [facility] Hardware e.g. pins/screws /rods [employer]is [id number] / / Clp Mckittrick Ti Mcr - [id number] Implanted:Qt y: 1 on 04/25/2018 by Randall Rodríguez M.D., Ph.D. at [facility] Hardware e.g. pins/screws /rods [employer]is [id number] / / Clp Mckittrick Ti Mcr - [id number] Implanted:Qt y: 1 on 04/25/2018 by Randall Rodríguez M.D., Ph.D. at [facility] Hardware e.g. pins/screws /rods Synovis [id number] / / Clp Mckittrick Ti Mcr - [id number] Implanted:Qt y: 1 on 04/25/2018 by Randall Rodríguez M.D., Ph.D. at [facility] Hardware e.g. pins/screws /rods Synovis [id number] / / Clp Mckittrick Ti Spr Mcr 1.5 - [id number] Implanted:Qt y: 1 on 04/25/2018 by Randall Rodríguez M.D., Ph.D. at [facility] Hardware e.g. pins/screws /rods Synovis [id number] / / Clp Apr Lgm Intnl Endo 5x13 - [id number] Implanted:Qt y: 1 on 09/14/2018 by Richie rOr M.D. at [facility] Hardware e.g. pins/screws /rods [employer]icon [id number] 05/15/2023 [id number] / / [id number] Explanted Type Area Communication Technician Device Identifier Shelf Expiration Date Model / Serial / Lot Natrelle-Expand er Mod Tab 400cc - Leal [id number] Implanted:Qty: 1 on 11/14/2017 Explanted:Qty: 1 on 04/25/2018 at [facility] Tissue Trimming Operator Other/Legacy - See Implant Description [employer] Description:Device Manufactu rer - [employer] Body Location - Other. Left. Device Status Text - [id number]. Natrelle-Expand er Mod Tab 400cc - Leal [id number] Implanted:Qty: 1 on 11/14/2017 Explanted:Qty: 1 on 04/25/2018 at [facility] Tissue Trimming Operator Other/Legacy - See Implant Description [employer] Medical Description:Device Manufactu rer - [employer] Inc[employer] Body Location - Other. Right. Device Status Text - [id number]. Procedures Procedure Name Priority Date/Time Associated Diagnosis Comments BASIC METABOLIC PANEL, S/P STAT 03/12/2020 4:58 PM CDT from Last 3 Months or Most Recently Relevant to Health Maintenance Results * Basic Metabolic Panel (03/12/2020 4:58 PM CDT) [facility] Signature Potassium, P 4.1 3.6 - 5.2 mmol/L [...] 03/12/2020 5:39 PM CDT NPRG eGFR-Black/Afric an Kyrgyz >90 >=60 mL/min/BSA 03/12/2020 5:39 PM CDT NPRG Comment: ----ADDITIONAL INFORMATION---- Estimated GFR calculated using the 2009 CKD_EPI creatinine equation. eGFR Non-Black/Mable n Kyrgyz 81 >=60 mL/min/BSA 03/12/2020 5:39 PM CDT NPRG Comment: ----ADDITIONAL INFORMATION---- Estimated GFR calculated using the 2009 CKD_EPI creatinine equation. Calcium, Total, P 9.7 8.6 - 10.0 mg/dL 03/12/2020 5:39 PM CDT NPRG Glucose, P 129 70 - 140 mg/dL 03/12/2020 5:39 PM CDT NPRG Blood (Blood, Venous) 03/12/2020 4:58 PM CDT 03/12/2020 5:15 PM CDT Landen Huffman M.D. LAB BLOOD ADD-ON [facility] [address] [place] [address], [facility] NPRG [facility] [address] [place] [address] from Last 3 Months or Most Recently Relevant to Health Maintenance
--- OUTSIDE RECORDS SUMMARY | 2024-05-29 12:56 | XMS_ITS ---
Author Organization [facility] Address [address] [place] [address] Care Team Providers Care Hot Die Picker Name Role Phone Unavailable Unavailable Unavailable Surgery Details Not on file Complications Check Surgery Details section. Procedure Estimated Blood Loss Check Surgery Details section. Procedure Findings Check Surgery Details section. Procedure Specimens Taken Check Surgery Details section.
--- OUTSIDE RECORDS SUMMARY | 2024-05-29 12:56 | XMS_ITS | Clinical Summary ---
Author Organization [facility] Address [address] [place] [address] Care Team Providers Care Surgical Dressing Maker Name Role Phone Unavailable Primary Care Provider Unavailabl e Source Comments Patient records contain information from all sites at [facility]. For routine questions regarding patient records, call [phone] during business hours, M-F 8:00 AM - 5:00 PM Central Time. Record requests for emergency care only can be directed to [phone] at any time.[facility] Allergies No known active allergies Medications [...] (02/08/2018): Added automatically from request for surgery [id number] Cough Unspecified Type 10/18/2017 Nausea 10/18/2017 Malignant [...] Sex Assigned at Female 09/08/2023 11:21 AM EVENTS MANAGER Gender Identity Female 09/11/2017 2:05 PM EVENTS MANAGER Sexual Orientation Straight 09/11/2017 2: 05 PM EVENTS MANAGER Last Filed Vital Signs Vital Sign Reading Time Taken Comments Blood Pressure 140/86 09/08/2023 12:37 PM EVENTS MANAGER Pulse 86 09/08/2023 12:33 PM EVENTS MANAGER Temperature 36.2 ??C (97.2 ??F) 09/08/2023 12:[address] Respiratory Rate 16 03/12/2020 6:35 PM CDT Oxygen Saturation 98% 09/08/2023 12:33 PM EVENTS MANAGER Inhaled Oxygen Concentration - - Weight 131 kg (289 lb 0.4 oz) 09/08/2023 12:33 P M EVENTS MANAGER Height 161.2 cm (5' 3.47) 12/31/2018 2:02 [...] 03/12/2023 03/12/2020, 07/30/2018, 12/15/2017, Additional history exists Depression Screening (Annual PHQ-2) 10/16/2023 Office Visit for Blood Pressure Check / Re-check 12/09/2023 09/08/2023 Influenza Vaccine (#1) 2024 0, 07/17/2019, 07/19/2018, Additional history exists DTaP,Tdap,and Td Vaccines (2 - Td or Tdap) 04/23/2025 04/23/2015 HPV Vaccines Aged Out No longer eligi ble based on patient's age to complete this topic Medical Devices Implanted Type Area Nuclear Waste Process Operator Device Identifier Shelf Expiration Date Model / Serial / Lot Clp [place] Ti Spr Mcr 1.5 - [id number] Implanted:Qt y: 1 on 04/25/2018 by Randall Rodríguez M.D., Ph.D. at [facility] Hardware e.g. pins/screws /rods Synovis [id number] / / Clp Hrzn Ti 6 Clp Sm Red - [id number] Implanted:Qt y: 1 on 04/25/2018 by Randall Rodríguez M.D., Ph.D. at [facility] Hardware e.g. pins/screws /rods Weck (Div of [employer]) 1201 / / Clp Hrzn Ti 6 Clp Sm Red - [id number] Implanted:Qt y: 1 on 04/25/2018 by Randall Rodríguez M.D., Ph.D. at [facility] Hardware e.g. pins/screws /rods Weck (Div of [employer]) 1201 / / Clp Hrzn Ti 6 Clp Sm Red - [id number] Implanted:Qt y: 1 on 04/25/2018 by Randall Rodríguez M.D., Ph.D. at [facility] Hardware e.g. pins/screws /rods Weck (Div of [employer]) 1201 / / Clp Hrzn Ti 6 Clp Sm Red - [id number] Implanted:Qt y: 1 on 04/25/2018 by Randall Rodríguez M.D., Ph.D. at [facility] Hardware e.g. pins/screws /rods Weck (Div of [employer]) 1201 / / Clp Hrzn Ti 6 Clp Sm Red - [id number] Implanted:Qt y: 1 on 04/25/2018 by Randall Rodríguez M.D., Ph.D. at [facility] Hardware e.g. pins/screws /rods Weck (Div of [employer]) 1201 / / Clp Hrzn Ti 6 Clp Sm Red - [id number] Implanted:Qt y: 1 on 04/25/2018 by Randall Rodríguez M.D., Ph.D. at [facility] Hardware e.g. pins/screws /rods Weck (Div of [employer]) 1201 / / Clp [place] Ti Spr Mcr 1.5 - [id number] Implanted:Qt y: 1 on 04/25/2018 by Randall Rodríguez M.D., Ph.D. at [facility] Hardware e.g. pins/screws /rods Synovis [id number] / / Clp Hrzn Ti 24 Clp Md Sunny - [id number] Implanted:Qt y: 1 on 04/25/2018 by Randall Rodríguez M.D., Ph.D. at [facility] Hardware e.g. pins/screws /rods [employer] [id number] / / Clp Hrzn Ti 6 Clp Sm Red - [id number] Implanted:Qt y: 1 on 04/25/2018 by Randall Rodríguez M.D., Ph.D. at [facility] Hardware e.g. pins/screws /rods Weck (Div of [employer]) [id number] 12/27/2022 1201 / / [id number] Clp Hrzn Ti 6 Clp Md Sunny - [id number] Implanted:Qt y: 1 on 04/25/2018 by Randall Rodríguez M.D., Ph.D. at [facility] Hardware e.g. pins/screws /rods [employer] [id number] 02/12/2023 [id number] / / [id number] Clp Hrzn Ti 6 Clp Md Sunny - [id number] Implanted:Qt y: 1 on 04/25/2018 by Randall Rodríguez M.D., Ph.D. at [facility] Hardware e.g. pins/screws /rods [employer] [id number] 02/12/2023 [id number] / / [id number] Clp Hrzn Ti 6 Clp Sm Red - [id number] Implanted:Qt y: 1 on 04/25/2018 by Randall Rodríguez M.D., Ph.D. at [facility] Hardware e.g. pins/screws /rods Weck (Div of [employer]) [id number] 01/13/2023 1201 / / [id number] Cplr [place] Vasc Anstm 3 - [id number] Implanted:Qt y: 1 on 04/25/2018 by Randall Rodríguez M.D., Ph.D. at [facility] Hardware e.g. pins/screws /rods [employer]is [id number] / / Clp [place] Ti Spr Mcr 1.5 - [id number] Implanted:Qt y: 1 on 04/25/2018 by Randall Rodríguez M.D., Ph.D. at [facility] Hardware e.g. pins/screws /rods Right: Breast [employer]is [id number] / / Clp [place] Ti Spr Mcr 1.5 - [id number] Implanted:Qt y: 1 on 04/25/2018 by Randall Rodríguez M.D., Ph.D. at [facility] Hardware e.g. pins/screws /rods Right: Breast [employer]is [id number] / / Clp Hrzn Ti 6 Clp Sm Red - [id number] Implanted:Qt y: 1 on 04/25/2018 by Randall Rodríguez M.D., Ph.D. at [facility] Hardware e.g. pins/screws /rods Right: Breast Weck (Div of [employer]) [id number] 01/13/2023 1201 / / [id number] Clp Hrzn Ti 6 Clp Sm Red - [id number] Implanted:Qt y: 1 on 04/25/2018 by Randall Rodríguez M.D., Ph.D. at [facility] Hardware e.g. pins/screws /rods Right: Breast Weck (Div of [employer]) [id number] 01/13/2023 1201 / / [id number] Clp Hrzn Ti 6 Clp Sm Red - [id number] Implanted:Qt y: 1 on 04/25/2018 by Randall Rodríguez M.D., Ph.D. at [facility] Hardware e.g. pins/screws /rods Right: Breast Weck (Div of [employer]) [id number] 01/13/2023 1201 / / [id number] Cplr [place] Vasc Anstm 3 - [id number] Implanted:Qt y: 1 on 04/25/2018 by Randall Rodríguez M.D., Ph.D. at [facility] Hardware e.g. pins/screws /rods [employer] 11/15/2022 [id number] / / [id number] Clp [place] Ti Mcr - [id number] Implanted:Qt y: 1 on 04/25/2018 by Randall Rodríguez M.D., Ph.D. at [facility] Hardware e.g. pins/screws /rods [employer]is [id number] / / Clp [place] Ti Mcr - [id number] Implanted:Qt y: 1 on 04/25/2018 by Randall Rodríguez M.D., Ph.D. at [facility] Hardware e.g. pins/screws /rods Synovis [id number] / / Clp [place] Ti Mcr - [id number] Implanted:Qt y: 1 on 04/25/2018 by Randall Rodríguez M.D., Ph.D. at [facility] Hardware e.g. pins/screws /rods Synovis [id number] / / Clp [place] Ti Mcr - [id number] Implanted:Qt y: 1 on 04/25/2018 by Randall Rodríguez M.D., Ph.D. at [facility] Hardware e.g. pins/screws /rods Syn[employer]is [id number] / / Clp [place] Ti Mcr - [id number] Implanted:Qt y: 1 on 04/25/2018 by Randall Rodríguez M.D., Ph.D. at [facility] Hardware e.g. pins/screws /rods Syn[employer]is [id number] / / Clp [place] Ti Mcr - [id number] Implanted:Qt y: 1 on 04/25/2018 by Randall Rodríguez M.D., Ph.D. at [facility] Hardware e.g. pins/screws /rods Syn[employer]is [id number] / / Clp [place] Ti Spr Mcr 1.5 - [id number] Implanted:Qt y: 1 on 04/25/2018 by Randall Rodríguez M.D., Ph.D. at [facility] Hardware e.g. pins/screws /rods Synovis [id number] / / Clp Apr Lgm Intnl Endo 5x13 - [id number] Implanted:Qt y: 1 on 09/14/2018 by Richie Orr M.D. at [facility] Hardware e.g. pins/screws /rods Ethicon [id number] 05/15/2023 [id number] / / [id number] Explanted Type Area Nuclear Waste Process Operator Device Identifier Shelf Expiration Date Model / Serial / Lot Natrelle-Expand er Mod Tab 400cc - Leal [id number] Implanted:Qty: 1 on 11/14/2017 Explanted:Qty: 1 on 04/25/2018 at [facility] Tissue Mechanical Estimator Other/Legacy - See Implant Description [employer] Description:Device Manufactu rer - [employer] Body Location - Other. Left. Device Status Text - [id number]. Natrelle-Expand er Mod Tab 400cc - Leal [id number] Implanted:Qty: 1 on 11/14/2017 Explanted:Qty: 1 on 04/25/2018 at [facility] Tissue Mechanical Estimator Other/Legacy - See Implant Description [employer] Description:Device Manufactu rer - [employer] Body Location - Other. Right. Device Status Text - [id number]. Procedures Procedure Name Priority Date/Time Associated Diagnosis [...] 03/12/2020 5:39 PM CDT NPRG eGFR-Black/Afric an Ugandan >90 >=60 mL/min/BSA 03/12/2020 5:39 PM CDT NPRG Comment: ----ADDITIONAL INFORMATION---- Estimated GFR calculated using the 2009 CKD_EPI creatinine equation. eGFR Non-Black/Mable n Ugandan 81 >=60 mL/min/BSA 03/12/2020 5:39 PM CDT NPRG Comment: ----ADDITIONAL INFORMATION---- Estimated GFR calculated using the 2009 CKD_EPI creatinine equation. Calcium, Total, P 9.7 8.6 - 10.0 mg/dL 03/12/2020 5:39 PM CDT NPRG Glucose, P 129 70 - 140 mg/dL 03/12/2020 5:39 PM CDT NPRG Blood (Blood, Venous) 03/12/2020 4:58 PM CDT 03/12/2020 5:15 PM CDT Landen Huffman M.D. LAB BLOOD ADD-ON [facility] [address] [place] [address], [facility] NPRG [facility] [address] [place] [address] from Last 3 Months or Most Recently Relevant to Health Maintenance
[2024-05-29 12:57] LABS: Creatinine* 0.7 mg/dL (0.5-1.5); Est. Creatinine Clearance* 83.95; Estimated Glomerular Filt Rate 106 ml/min
[2024-05-29 12:58] LABS: D Dimer Quantitative* 0.42 ug/ml (0.00-0.50)
[2024-05-29 12:58] LABS: Anion Gap 9 mEq/L (7-15); Blood Urea Nitrogen* 12 mg/dL (5-24); Calcium* 9.8 mg/dL (8.4-10.6); Carbon Dioxide* 27 mmol/L (20-32); Glucose* 112 mg/dL (60-115); Magnesium* 1.7 mg/dL (1.5-2.6)
[2024-05-29 13:01] LABS: C Reactive Protein* 1.4 mg/dL (0.5-1.0)
[2024-05-29 13:13] LABS: NT Pro B Type NatriureticPept* 860 pg/mL
[2024-05-29 13:14] LABS: PCR FLU A Negative PCR FLU A (Negative); PCR FLU B Negative PCR FLU B (Negative); SARS PCR* Negative SARS-CoV-2 (Negative)
== END 2024-05-29 14:36 | disposition home or self-care (01) ==
PROVIDERS: Emergency Provider Family Medicine; PCP Family Medicine
DX: R06.00 Dyspnea, unspecified (principal); R03.0 Elevated blood-pressure reading, without diagnosis of hypertension
CPT/HCPCS: 36415; 71045; 80048; 83735; 83880; 84443; 85025; 85379; 86140; 87631; 93005; 99284; 99285

== ENCOUNTER 2024-12-24 14:44 | Outpatient (CLI) | payer BC, SELFPAY | END 2024-12-24 14:45 | disposition home or self-care (01) | LOC: LKVREF 14:45 | PROVIDERS: PCP Family Medicine; Visit Provider Family Medicine | DX: I10 Essential (primary) hypertension (principal); Z13.6 Encounter for screening for cardiovascular disorders | CPT/HCPCS: 80061 ==

== ENCOUNTER 2025-02-11 07:55 | Outpatient (RCR) | payer BC, SELFPAY ==
[2025-02-04] MEDS: SODIUM CHLORIDE 0.9 % (FLUSH) 10 ML SYRINGE IVF (08:25)
[2025-02-04] MEDS: REGADENOSON 0.4 MG/5 ML SYRINGE IVP (08:45)
[2025-02-04 09:05] VITALS: BP 128/76; PULSE 98; RESP 18
--- NOTE | 2025-02-04 09:06 | W.PM.STED ---
Stress Test Note Date Date Seen: 02/04/25 Date of test: 02/04/25 Providers Primary care provider: Jeanmarie Moss Stress test physician: Cristiana Morley Stress Test Note Stress test ordered: Lexiscan Indication for test: Dyspnea Stress test medicine: Lexiscan Results discussion: Resting EKG: Sinus rhythm, 73 beats per minute. Resting blood pressure: 137/86 Stress test: Patient is consented on ordered stress test Lexiscan and agrees to proceed. She is able to follow a walking Lexiscan protocol. She did have some chest heaviness and some left arm heaviness after infusion of the regadenoson. There was an occasional PVC seen during observation of the EKG monitoring but no arrhythmia. Patient's blood pressure remained stable, maximum heart rate was 126 beats per minute during this test. She had no diagnostic ischemic changes on EKG monitoring. Nuclear images are pending to couple this for a full formal diagnostic test. Impression: Subjectively with chest and left arm heaviness, objectively negative EKG portion of this Lexiscan. Follow up suggested: Patient will get her post stress nuclear images. All images will be sent for reading and couple this for a full formal diagnostic. Patient was discharged from this portion of this stress test in stable condition and will await results from her primary ordering provider.
== END 2025-02-18 23:59 | disposition home or self-care (01) ==
LOC: STRESS 07:55
PROVIDERS: PCP Family Medicine; Visit Provider Family Medicine
DX: R06.09 Other forms of dyspnea (principal)
CPT/HCPCS: 78452; 93016; 93017; A9500; J2785

== ENCOUNTER 2025-06-24 13:30 | Outpatient (CLI) | payer BC, SELFPAY | END 2025-06-24 13:31 | disposition home or self-care (01) | PROVIDERS: PCP Family Medicine; Visit Provider Family Medicine | DX: E78.5 Hyperlipidemia, unspecified (principal); K76.0 Fatty (change of) liver, not elsewhere classified; E04.1 Nontoxic single thyroid nodule | CPT/HCPCS: 80061; 80076; 84443 ==

== ENCOUNTER 2025-09-12 16:03 | Outpatient (CLI) | payer BC, SELFPAY ==
--- NOTE | 2025-09-12 16:00 | CRLHL7_ITS ---
For Patients: As a result of the Century Cures Act, medical imaging exams and procedure reports are released immediately into your electronic medical record. You may view this report before your referring provider. If you have questions, please contact your health care provider. INDICATION: Periumbilic swelling, mass or lump TECHNIQUE: CT abdomen and pelvis without contrast. COMPARISON: CT abdomen/pelvis dated 09/25/2020. FINDINGS: Evaluation of solid organs is limited secondary to lack of IV contrast administration. Liver: No suspicious focal hepatic lesion. Gallbladder and bile ducts: Post cholecystectomy. Pancreas: Unremarkable. Spleen: Unremarkable. Adrenal glands: Unremarkable. Kidneys: No renal calculi or hydronephrosis bilaterally. Retroperitoneum: No lymphadenopathy. Bowel and mesentery: Bowel is not obstructed. No significant ascites. Sigmoid colonic diverticulosis, with mild inflammation at the mid sigmoid colon. Normal appendix. Prominent duodenal diverticulum. Bladder: Unremarkable for degree of distention. Reproductive organs: Post hysterectomy. Pelvic lymph nodes: No lymphadenopathy. Vessels: Unremarkable for unenhanced study. Abdominal wall: Periumbilical ventral abdominal wall hernia containing short segment loop of small bowel, without evidence of obstruction at this time. The hernia neck measures approximately 5.3 cm in transverse dimension, and 2.5 cm in cranial-caudal dimension. Bones: Multilevel degenerative changes of the spine. Bones are osteopenic. Inferior endplate sclerosis of L4, favored to be degenerative in the absence of a known malignancy. Chronic left posterior rib fracture deformity noted. Lower chest: Subsegmental atelectasis/scarring in the right middle lobe and lingula. No focal consolidation. IMPRESSION: 1. Periumbilical ventral abdominal wall hernia containing short segment loop of small bowel, without evidence of obstruction at this time. 2. Trace inflammatory changes at the mid sigmoid colon, may reflect mild acute diverticulitis. Please note that all CT scans at this facility use dose modulation, iterative reconstruction, and/or weight-based dosing when appropriate to reduce radiation dose to as low as reasonably achievable. Dictated by Foster Mireles MD @ 09/12/2025 6:04:39 PM (Electronically Signed)
== END 2025-09-12 16:04 | disposition home or self-care (01) ==
LOC: CT 16:04
PROVIDERS: PCP Family Medicine; Visit Provider Family Medicine
DX: R19.05 Periumbilic swelling, mass or lump (principal); K43.9 Ventral hernia without obstruction or gangrene; K57.30 Diverticulosis of large intestine without perforation or abscess without bleeding; M85.80 Other specified disorders of bone density and structure, unspecified site
CPT/HCPCS: 74176

== ENCOUNTER 2025-09-23 10:15 | Outpatient (CLI) | payer BC, SELFPAY | END 2025-09-23 10:16 | disposition home or self-care (01) | LOC: LKVREF 10:17 | PROVIDERS: PCP Family Medicine; Visit Provider Family Medicine | DX: Z01.818 Encounter for other preprocedural examination (principal) | CPT/HCPCS: 80048 ==

== ENCOUNTER 2025-09-29 07:35 | Day surgery (SDC) | payer BC, SELFPAY ==
[2025-09-29] VITALS (22 sets, daily range): BP systolic 96–134; BP diastolic 48–82; PULSE 54–85; RESP 12–20; TEMP 36.8–38.2; O2SAT 67–99; BMI 38.2
[2025-09-29] MEDS: LACTATED RINGERS 1000 ML 1,000 ML 100 ML IV ×2 (08:15→13:32)
[2025-09-29] MEDS: SODIUM CHLORIDE 0.9 % (FLUSH) 10 ML SYRINGE IVF (08:15)
--- NOTE | 2025-09-29 08:45 | W.PM.H&PU ---
History & Physical Update History & Physical Update H&P Reviewed and patient assessed: No changes noted
--- NOTE | 2025-09-29 08:47 | P.GSOP_ITS ---
Operative Note Date of procedure: 09/29/25 Pre-op diagnosis: 1. Symptomatic periumbilical/ventral hernia containing small bowel with no evidence of obstruction Post-op diagnosis: Same Type of Procedure: 1. Open ventral hernia repair with 10 x 15 cm Phasix mesh. Indications: 50 yo F with history of ILIR flaps for mastectomy reconstruction was seen in clinic for evaluation of an enlarging periumbilical bulge. Patient noticed a bulge on the right side of her umbilicus in October of 2024. Over the next several months her bulge has been increasing in size and she felt ?squishing? in the bulge. Patient denied episodes of incarceration. She denied pain at the bulge. Abdominal CT was obtained in the 2024 that showed periumbi lical ventral hernia with incarcerated bowel in the hernia sac with no evidence of obstruction. On clinical exam with the patient standing up, there was an obviously palpable bulge just superior and right to the umbilicus. This was not tender to palpation. Given patient's clinical history and incarcerated bowel in the hernia sac, an open ventral hernia repair was recommended. The procedure was discussed in detail. The risks associated procedure including infection, bleeding, injury to intra-abdominal organs, hernia recurrence, and the need for additional procedures were all discussed with the patient, and she agreed to proceed. Procedure Description: After discussing the risks and benefits of the procedure, the patient signed informed consent.? The operative site was marked and the patient was brought to the operating room and placed on the operating table in supine position.? Care was taken to pad the patient's pressure points.?? The patient was then intubated by anesthesia.?? The operative site was then prepped and draped in the usual sterile fashion.? A time-out was then performed. A vertical skin incision was made just superior to the umbilicus. This was done with a scalpel. Subcutaneous fat was divided with cautery. Scar was noted in subcutaneous fat. Initially it was difficult to identify the anterior fascia because of the scar tissue especially inferiorly. Finally, the anterior fascia was identified and grasped with Erick clamps. The hernia sac was midline and slightly to the right. I then proceeded with developing retrorectus space. On the right the muscle was thin and sparse. The correct plane was entered and retrorectus space was developed by mobilizing posterior fascia off the anterior fascia with cautery. Hemostasis achieved with cautery. This retrorectus home space was developed circumferentially with cautery. Centrally hernia sac was entered and the small bowel was adherent to the right inferior part of the hernia sac. These adhesions were taken down with Metzenbaum scissors. During mobilization of the posterior fascia and development of retrorectus space, 3 can palpation of posterior fascia was done intra-abdominally to avoid injury to small intestine. During this dissection peritoneal openings were developed and those were closed with Vicryl sutures. When adequate space was developed for mesh placement, we examined surgical field for hemostasis. No bleeding was seen. The fascial defect was measuring 3 x 6 cm. Inferiorly in scar was noted and the fascia was thinned out. I elected to repair this hernia with Phasix mesh with Seprafilm coating. 10 x 15 cm mesh was used and positioned in the retrorectus space over peritoneum and hernia sac. The mesh was secured in place with interrupted trans fascial sutures using 0-0 Vicryl. The anterior fascia over the mesh was then closed with 2 running 0-0 Maxon sutures. Surgical field was irrigated with warm normal saline. Local anesthetic was injected at the surgical site. A 15 round Abdon drain was placed through a separate stab incision left inferior to the umbilicus. The drain was placed in subcutaneous space over the fascia and secured in place with nylon suture. The umbilicus was then tacked down to the subcutaneous fat with interrupted 3-0 Vicryl sutures. Subcutaneous fat was then reapproximated with interrupted 2-0 Vicryl sutures. The dermis was reapproximated with interrupted 3-0 Vicryl sutures. The skin was closed with a running 4-0 Monocryl stitch. Steri-Strips and sterile dressings were placed over the incision and around the drain. All counts were correct at the end of the case. ? The patient was then woken and transported to the recovery area in stable condition. ? The patient tolerated the procedure well. Findings: 3 x 6 cm fascial defect repaired with Phasix mesh with Seprafilm undercoating Implants: Phasix mesh Anesthesia: GETA Surgeon: Mellisa Davies MD Estimated blood loss (mL): 25 Condition: stable Disposition: PACU
--- NOTE | 2025-09-29 12:49 | P.ANES_ITS ---
Anesthesia Charges Start Date/Time Anesthesia Start Date: 09/29/25 Anesthesia Start Time: 08:52 Stop Date/Time Anesthesia Stop Date: 09/29/25 Anesthesia Stop Time: 12:36 Coding CPT Codes CPT Codes: ANESTH REPAIR OF HERNIA - 17480 ([id number]) P2 - PATIENT W/MILD SYST DISEASE, QK - TENT ASSEMBLER 2-4 CNCRNT ANES PROC, QX - FILM WAXER SVC W/ MD MED DIRECTION
--- NOTE | 2025-09-29 12:49 | W.ANESCHARGE ---
Anesthesia Charges Start Date/Time Anesthesia Start Date: 09/29/25 Anesthesia Start Time: 08:52 Stop Date/Time Anesthesia Stop Date: 09/29/25 Anesthesia Stop Time: 12:36 Coding CPT Codes CPT Codes: ANESTH REPAIR OF HERNIA - 95273 ([id number]) P2 - PATIENT W/MILD SYST DISEASE, QK - COMMERCIAL RELATIONSHIP MANAGER 2-4 CNCRNT ANES PROC, QX - SPANISH SPEAKING BABYSITTER SVC W/ MD MED DIRECTION
[2025-09-29] MEDS: HYDROCODONE-ACETAMIN 5-325 MG 1 TAB PO (13:55)
--- NOTE | 2025-09-29 15:04 | SUR.PHASEII ---
Pt currently on 2L NC oxygen sats 93% RA. Pt tolerated toast and water. Pt using incentive spirometer, does well. Pt able to give a good cough. Informed pt about splinting abd when coughing or sneezing.
[2025-09-29] MEDS: LACTATED RINGERS 500 ML 500 ML 100 ML IV (15:07)
--- NOTE | 2025-09-29 15:25 | SUR.PHASEII ---
1520: Took patient off oxygen, pt on room air desats to 83% on room air, with intervention of telling patient to take deep breaths sats up to 89-90% on Room air.
--- NOTE | 2025-09-29 15:37 | SUR.PHASEII ---
updated Dr. Davies on patient's oxygen saturations and desaturations. Orders will be placed for patient to continue to recover overnight on Med/Surg. Spoke with Katerine ALFONSOrn charge nurse on Med/surg.
--- NOTE | 2025-09-29 16:14 | SUR.PHASEII ---
Pt ambulated from bed to wheelchair without difficulty. Eli ALFONSO brought pt to Med/Surg via wheelchair. Pt's family here. Report given to Fani ALFONSO on med/surg
--- NOTE | 2025-09-29 16:24 | SUR.PHASEII ---
[place] drain was stripped at 1230. Minimal drainage noted in tube and bulb.
[2025-09-29] MEDS: ACETAMINOPHEN 325 MG TABLET 650 MG PO (19:54)
[2025-09-30] MEDS: HYDROCODONE-ACETAMIN 5-325 MG 1 TAB PO (00:44)
[2025-09-30 03:06] VITALS: BP 115/62; PULSE 73; RESP 18; TEMP 36.6; O2SAT 93
--- NOTE | 2025-09-30 04:43 | PC.NURSE ---
shift note: pt is AOx4. afebrile. pt VSS. pt has abd dressing underneath abd binder. dresing is C/D/I. L lower abd [place] bulb drain w/ <20cc output total. pt slept in chair, elevated semi-fowlers & tolerated RA throughout HS, w O2 maintained between 85-97%. education provided on wound healing, fall precautions, S & S of infection, & pain mgmt. pt son beside at beginning of shift & supportive. pt reported pain, PRN pain meds given- see EMAR.
[2025-09-30 08:00] VITALS: O2SAT 97
[2025-09-30 08:05] VITALS: BP 127/71; PULSE 68; RESP 18; TEMP 36.6; O2SAT 97
--- NOTE | 2025-09-30 08:13 | P.DS_ITS ---
DS: Providers Provider Date Seen: 09/30/25 Primary care physician: Jeanmarie Moss MD Attending Physician on discharge: Mellisa Davies MD DS: Diagnosis Discharge Diagnosis (1) S/P repair of ventral hernia: Status: Acute DS: Summary Hospital Course Hospital Course: 50-year-old female was admitted to the hospital overnight after she underwent open ventral hernia repair with mesh. Patient was hypoxic postoperatively and required oxygen. Overnight she did well and her oxygen saturation was fluctuating between high 80s and low 90s overnight on room air. Patient is not on oxygen in the morning. Her pain is well controlled. She tolerated regular diet. She is passing gas. Time Spent with Patient Time attestation: Total time spent providing and/or coordinating discharge services: Exam Narrative: Exam Narrative: Abdomen is soft, not distended, surgical dressing is covering midline incision, the dressing is clean and dry, there is minimal amount of bloody serosanguineous fluid in the [place] bulb. The drain output was about 20 mL since surgery. Const: Vital Signs, click to edit/add: Vital Signs - 24 hr 09/29/25 12:31 09/29/25 12:35 09/29/25 12:40 Temperature 98.2 F Pulse Rate 60 62 63 Pulse Rate [Right Pulse Oximeter] Respiratory Rate 14 14 12 Blood Pressure 106/50 L 105/53 L 103/57 L Blood Pressure [Le ft Arm] Pulse Oximetry 96 93 96 Oxygen Delivery Me thod Room Air Blow By Blow By Oxygen Flow Rate 4 4 09/29/25 12:45 09/29/25 12:50 09/29/25 12:55 Temperature Pulse Rate 59 L 63 62 Pulse Rate [Right Pulse Oximeter] Respiratory Rate 14 12 14 Blood Pressure 105/57 L 106/48 L 109/57 L Blood Pressure [Le ft Arm] Pulse Oximetry 95 93 94 Oxygen Delivery Me thod Blow By Room Air Room Air Oxygen Flow Rate 4 09/29/25 13:02 09/29/25 13:05 09/29/25 13:15 Temperature 100.7 F H Pulse Rate 62 54 L Pulse Rate [Right Pulse Oximeter] Respiratory Rate 16 16 Blood Pressure 105/63 98/54 L Blood Pressure [Le ft Arm] Pulse Oximetry 93 67 L 98 Oxygen Delivery Me thod Room Air OxyMask Oxygen Flow Rate 5 09/29/25 13:31 09/29/25 13:45 09/29/25 14:00 Temperature Pulse Rate 59 L 79 73 Pulse Rate [Right Pulse Oximeter] Respiratory Rate 16 16 16 Blood Pressure 96/64 113/74 109/57 L Blood Pressure [Le ft Arm] Pulse Oximetry 99 94 96 Oxygen Delivery Me thod OxyMask Nasal Cannula Nasal Cannula Oxygen Flow Rate 5 3 3 09/29/25 14:15 09/29/25 14:30 09/29/25 15:00 Temperature Pulse Rate 79 80 75 Pulse Rate [Right Pulse Oximeter] Respiratory Rate 16 16 16 Blood Pressure 113/74 122/63 104/60 Blood Pressure [Le ft Arm] Pulse Oximetry 96 94 93 Oxygen Delivery Me thod Nasal Cannula Nasal Cannula Nasal Cannula Oxygen Flow Rate 3 3 2 09/29/25 15:30 09/29/25 16:00 09/29/25 16:12 Temperature 98.7 F 98.7 F Pulse Rate 79 78 Pulse Rate [Right Pulse Oximeter] 83 Respiratory Rate 16 16 16 Blood Pressure 105/57 L 116/65 Blood Pressure [Le ft Arm] 120/73 Pulse Oximetry 89 89 92 Oxygen Delivery Me thod Room Air Room Air Room Air Oxygen Flow Rate 09/29/25 17:27 09/29/25 19:39 09/29/25 23:04 Temperature 98.3 F 98.3 F 98.7 F Pulse Rate Pulse Rate [Right Pulse Oximeter] 76 85 75 Respiratory Rate 16 18 18 Blood Pressure Blood Pressure [Le ft Arm] 122/64 124/73 121/70 Pulse Oximetry 95 97 95 Oxygen Delivery Me thod Room Air Room Air Room Air Oxygen Flow Rate 09/29/25 23:04 09/29/25 23:04 09/30/25 03:06 Temperature 97.8 F Pulse Rate Pulse Rate [Right Pulse Oximeter] 73 Respiratory Rate 18 18 18 Blood Pressure Blood Pressure [Le ft Arm] 115/62 Pulse Oximetry 95 93 Oxygen Delivery Me thod Room Air Room Air Oxygen Flow Rate 09/30/25 08:05 Temperature 97.8 F Pulse Rate Pulse Rate [Right Pulse Oximeter] 68 Respiratory Rate 18 Blood Pressure Blood Pressure [Le ft Arm] 127/71 Pulse Oximetry 97 Oxygen Delivery Me thod Room Air Oxygen Flow Rate Discharge Plan Discharge Disposition: Home w/ Parent or Adult Discharging Surgeon: Katsiaryna [place] [facility] Prescriptions: New hydrocodone-acetaminophen 5-325 mg Tablet 1 tab PO Q6H PRN (Reason: Pain) Qty: 25 0RF No Action amlodipine 10 mg tablet 10 mg PO DAILY metformin 500 mg tablet extended release 24 hr 500 mg PO BID Qty: 180 3RF lisinopril 40 mg tablet 40 mg PO DAILY spironolactone 50 mg tablet 50 mg PO DAILY rosuvastatin 20 mg tablet 20 mg PO DAILY Activity Level: No strenuous activity Activity Detail: No strenuous activity or lifting more than 15-20 lbs for 4-6 weeks. Take laxative such as MiraLax daily for the first 7-10 days after surgery to prevent constipation. Take the outer dressing off tomorrow. Leave Steri-Strips on for the next 7-10 days. Put dry folded gauze into the belly button and secured with tape. Do these dressing changes daily for 7 days. Strip the drain 3 times a day, measure and record drainage per day. Wear a bdominal binder on all the time until follow-up in clinic. It is okay to take the binder off for showering. Okay to shower in 24 hours after surgery. Avoid swimming or submerging incision under water (except for showering) for 2 weeks. Discharge Diet: Regular Patient Instructions: Sebastian-Pal Drain Care (DC), Open Herniorrhaphy (DC), Deep Sedation (DC), NH+C Post-Operative Instructions: Hernia Repair Additional Instructions: Please teach drain care and gave her supplies to clean around the drain daily and replace gauze around the drain. Follow-up: Mellisa Davies MD [Staff Physician, General Surgery] - 10/08/25 9:30 am Referral Note: [facility] [address] [place] [address] Discharge Orders: Discharge Order (Routine); Ordered 09/30/25 Ordered By: Mellisa Davies
[2025-09-30] MEDS: ACETAMINOPHEN 325 MG TABLET 650 MG PO (08:37)
--- NOTE | 2025-09-30 12:48 | PC.NURSE ---
The patient discharged home with all her belongings. All discharge teaching questions were answered. Maximo drain to medial abdomen with minimal output. Dressing is CDI, and the patient is instructed to take it off tomorrow AM and monitor for signs of infection. Arlene ALFONSO BSN
== END 2025-09-30 10:30 | disposition home or self-care (01) ==
LOC: OR 07:38 → MEDSURG 07:39
PROVIDERS: PCP Family Medicine; Visit Provider Surgery
PROC: (CPT 49595; principal; 2025-09-29 09:15)
DX: K43.9 Ventral hernia without obstruction or gangrene (principal); R09.02 Hypoxemia
CPT/HCPCS: 49595; 00750; A4467; A9270; J0690; J1100; J1885; J2371; J2405; J2704; J2710; J3010; J3475; J3490; J7120; Q4100